=== PATIENT | female | born 1970 | race Caucasian/White ===

== ENCOUNTER 2016-07-16 03:13 | Emergency (ER) | payer OTHER ==
[~2016-07-16] VITALS: Ht 170.2 cm; Wt 104.3 kg
[2016-07-16] MEDS ORDERED: LISI-538 PO (03:30)
[2016-07-16] MEDS ORDERED: PENI250T57 PO (05:05)
[2016-07-16] MEDS ORDERED: ACETAMINOPHEN 325 MG TAB PO ONE (06:15)
[2016-07-16] MEDS ORDERED: GUAISYP9 PO (06:58)
[2016-07-16] MEDS ORDERED: PROA1AER INH (06:58)
[2016-07-16] MEDS ORDERED: PRED20TA PO (06:58)
--- NOTE | 2016-07-16 07:41 | REP ---
Clinical: Wheezing . Comparison: 05/31/2015 . Technique: PA and lateral. Findings: The mediastinum and cardiac silhouette are normal. The lung estrada are clear and without acute consolidation, effusion, or pneumothorax. The skeletal structures are intact and normal. Impression: 1. No acute cardiopulmonary process. Signed by Natalio Hernandez MD 07/16/2016 07:33 A
[2016-07-16 08:23] VITALS: BP 154/78
== END 2016-07-16 08:24 | disposition home or self-care (01) ==
LOC: M ED 05:46
DX: J20.9 Acute bronchitis, unspecified (principal); J06.9 Acute upper respiratory infection, unspecified; I10 Essential (primary) hypertension; F17.210 Nicotine dependence, cigarettes, uncomplicated; Z79.899 Other long term (current) drug therapy

== ENCOUNTER 2016-07-19 09:00 | Emergency (ER) | payer OTHER ==
[~2016-07-19] VITALS: Ht 170.2 cm; Wt 104.3 kg
[~2016-07-19 09:00] MED LIST: GUAISYP9 PO; LISI-538 PO; PENI250T57 PO; PRED20TA PO; PROA1AER INH
[2016-07-19] MEDS ORDERED: diphenhydrAMINE 25 MG CAP PO ONE (10:45)
[2016-07-19] MEDS ORDERED: FAMOTIDINE 20 MG TAB PO ONE (10:45)
[2016-07-19] MEDS ORDERED: predniSONE 20 MG TAB PO ONE (10:45)
[2016-07-19] MEDS: ALBUTEROL SULFATE 2.5 MG/0.5 ML INH NEB SOLN NEB SCH ×3 (11:00→11:42)
[2016-07-19] MEDS ORDERED: ZITHTAB PO (12:15)
[2016-07-19] MEDS ORDERED: PEPC1TAB4 PO (12:15)
[2016-07-19 12:26] VITALS: BP 151/80
--- NOTE | 2016-07-20 07:31 | REP ---
CHEST, TWO VIEWS: HISTORY: Cough. COMPARISON: 07/16/2016 FINDINGS: The superior mediastinal structures are midline. The cardiac silhouette is unremarkable in size, shape and position. The diaphragmatic surfaces of the lungs are regular and the costophrenic angles are clear. The pulmonary estrada are clear. The imaged osseous structures are intact. IMPRESSION: There is no acute cardiopulmonary disease. No change from the prior exam. Signed by Milad Lester DO 07/20/2016 09:54 A
== END 2016-07-19 12:29 | disposition home or self-care (01) ==
LOC: M ED 10:45
DX: J40 Bronchitis, not specified as acute or chronic (principal); L50.0 Allergic urticaria; T36.0X5A Adverse effect of penicillins, initial encounter; X58.XXXA Exposure to other specified factors, initial encounter; Y92.89 Other specified places as the place of occurrence of the external cause; R06.02 Shortness of breath; I10 Essential (primary) hypertension; F17.210 Nicotine dependence, cigarettes, uncomplicated; Z79.2 Long term (current) use of antibiotics; Z79.52 Long term (current) use of systemic steroids

== ENCOUNTER 2016-08-25 14:13 | Inpatient (IN) | payer OTHER ==
[~2016-08-25] VITALS: Ht 170.2 cm; Wt 102.9 kg
[~2016-08-25 14:13] MED LIST changes: +PEPC1TAB4 PO; +ZITHTAB PO
[2016-08-25] MEDS ORDERED: KETOROLAC 30 MG/ML VIAL (J1885) IV ONE (15:15)
[2016-08-25] MEDS ORDERED: NS 1,000 ML IV ONE (15:15)
[2016-08-25] MEDS ORDERED: ONDANSETRON 4MG/2ML VIAL (J2405) IV ONE (15:15)
[2016-08-25 15:42] LABS: BASO % 0.4 % (0.0-1.0); EOS # 0.1 K/mm3 (0.0-0.50); LARGE UNSTAINED CELL # 0.1 K/mm3 (0.0-0.4); LYMPH # 1.6 K/mm3 (1.5-4.5); LYMPH % 10.5 % (24.0-44.0); MEAN CORPUSCULAR HEMOGLOBIN 32.6 pg (27.0-33.0); MEAN CORPUSCULAR HGB CONC 35.2 g/dl (32.0-36.5); MEAN CORPUSCULAR VOLUME 92.8 fl (80.0-96.0); MONO # 0.5 K/mm3 (0.0-0.8); MONO % 3.7 % (0.0-5.0); NEUTROPHILS # 11.6 K/mm3 (1.8-7.7); NEUTROPHILS % 83.5 % (36.0-66.0); PLATELET COUNT, AUTOMATED 175 k/mm3 (150-450); RED CELL DISTRIBUTION WIDTH 12.5 % (11.5-14.5); WHITE BLOOD COUNT 13.8 K/mm3 (4.0-10.0)
[2016-08-25 15:53] LABS: CONTROL LINE UCG INT CTR LINE PRESENT
[2016-08-25 16:12] LABS: ALBUMIN 3.6 GM/DL (3.2-5.2); ALKALINE PHOSPHATASE 113 U/L (45-117); ALT/SGPT 24 U/L (12-78); AMYLASE 99 U/L (25-115); ANION GAP 7 MEQ/L (8-16); AST/SGOT 12 U/L (15-37); BILIRUBIN,DIRECT 0.1 MG/DL (0.0-0.2); BILIRUBIN,TOTAL 0.7 MG/DL (0.2-1.0); BLOOD UREA NITROGEN 8 MG/DL (7-18); CARBON DIOXIDE LEVEL 27 MEQ/L (21-32); CHLORIDE LEVEL 107 MEQ/L (98-107); CREATININE FOR GFR 0.71 MG/DL (0.55-1.02); GLOMERULAR FILTRATION RATE > 60.0 (>58); GLUCOSE, FASTING 100 MG/DL (70-105); POTASSIUM SERUM 3.8 MEQ/L (3.5-5.1); SODIUM LEVEL 141 MEQ/L (136-145); TOTAL PROTEIN 7.6 GM/DL (6.4-8.2)
--- NOTE | 2016-08-25 16:17 | REP ---
RIGHT UPPER QUADRANT ULTRASOUND: Real-time sonographic evaluation of the right upper quadrant is performed. Gallbladder demonstrates multiple gallstones without gallbladder wall thickening or pericholecystic fluid. There is no intrahepatic or extrahepatic biliary dilatation, common bile duct measuring 3 mm in diameter. Liver demonstrates somewhat increased echotexture diffusely suggesting some degree of fibrofatty infiltration. No gross liver or pancreatic mass is seen. The pancreas is not optimally seen due to overlying bowel gas. Right kidney demonstrates no hydronephrosis or nephrolithiasis with a normal size at 11.3 cm in length. IMPRESSION: Gallstones in the gallbladder without gallbladder wall thickening, pericholecystic fluid or biliary dilatation. Signed by Manuel Kern MD 08/25/2016 05:14 P
[2016-08-25] MEDS ORDERED: MORPHINE 4 MG/ML 1ML SYRINGE IV ONE (16:45)
[2016-08-25] MEDS ORDERED: LISI-542 PO (17:19)
[2016-08-25] MEDS ORDERED: MORPHINE 2 MG/ML 1ML SYRINGE IV PRN (18:45)
--- NOTE | 2016-08-25 19:08 | HPEPDOC ---
General Date of Admission Aug 25, 2016 at 17:31 Chief Complaint The patient is a 45-year-old female admitted with a reason for visit of Abd/ Back Pain. History of Present Illness PRIMARY CARE PROVIDER: Caitlyn CHOUDHARY CHIEF COMPLAINT: "I have gallstones" HISTORY OF PRESENT ILLNESS: Amanda Manning is a 45 year old female with a PMH of gallstones and hypertension who presents to the ED with the chief complaint of "I have gallstones". Reports a gradual onset of epigastric abdominal pain described as aching in quality and up to 9-10/10 in severity at its worst. She has never had pain like this before. It has been constant until she received treatment in the ED with Toradol and Morphine bringing her pain down to a 3/10. Patient states it is worse with palpation & food and radiates straight through to her back. She reports associated nausea and dry heaves but denies any vomiting, diarrhea, constipation, fever, chills, chest pain/pressure, or urinary symptoms. Of note, she ate a hamburger and portuguese fries two days ago. Denies personal Hx of CAD, liver disease, or kidney disease. ALLERGIES: No known drug allergies. Allergic to milk and cheese. 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 Sometimes sexually active, uses condoms every time Last year ate fatty foods frequently, has tried to cut back over the past year and eat more fruits and vegetables this year. Usually has 2 meals per day. Takes "long walks" to work She cannot remember last time she had a mammogram Immunizations and flu shot up to date FAMILY HISTORY: Mother living at age 57 with Diabetes Father from complications related to alcohol Has 2 brothers and 1 sister who are in good health Has 1 child. CODE STATUS: FULL CODE REVIEW OF SYSTEMS: Constitutional: denies fevers or chills HEENT: Head: denies headaches, dizziness, light-headedness. Denies sore throat or cough Cardiovascular: denies chest discomfort/pain, palpitations Respiratory: denies shortness of breath, difficulty breathing Gastrointestinal: Positive for decreased appetite, abdominal pain, nausea and "dry heaves". Negative for hematemesis, diarrhea, constipation, melena, hematochezia : denies dysuria, hematuria, urinary changes Musculoskeletal: Positive back pain. Denies muscle / joint stiffness, pain, swelling. No neck pain. Neurological: denies numbness, tingling, weakness Lymphatics: denies palpable lymph nodes or swollen glands Integumentary: denies any cuts, rashes, bruises PHYSICAL EXAMINATION: Vitals: T:96.8 BP:127/70 RR:16 P:57 O2 Saturation:96% room air General: Morbidly obese female. Lying on side, sleeping on gurney with lights dimmed. HEENT: Head: normocephalic, atraumatic. Eyes: EOMI, sclera are nonicteric. Nose: No external lesions Throat: coated tongue. Poor dentition. Neck: No lymphadenopathy Respiratory: Chest wall stable without tenderness. Diffuse end expiratory wheezes throughout. No respiratory distress. Cardiovascular: bradycardia without murmurs, rubs or gallops. Abdomen: Obese. Tenderness to palpation midline epigastric region. No tenderness to any of the four quadrants. Negative Talavera's sign. No McBurney's point tenderness. Soft. Nondistended, no hepatosplenomegaly appreciated. No venous engorgement. No guarding or rebound. Bowel sounds present. Extremities: Tattoo right volar forearm. No swelling in either lower extremity bilaterally Neurological: Alert. Moves all four extremities. Sensation intact and symmetrical in upper and lower extremities bilaterally Integumentary: skin free from rashes, lesions, abrasions Vascular: 2+ pulses symmetrical in upper and lower extremities bilaterally LABORATORY DATA: WBC: 13.8 neutrophils: 83.5 lymph: 10.5 Calcium 9.0 lipase 1021 UA: ketones 1+, blood 1+, WBC 8, bacteria 1+, squamous cells 4 MICROBIOLOGY: Urine culture pending ELECTROCARDIOGRAM: none RADIOLOGY: RUQ U/S: gallstones without GBW thickening, pericholecystic fluid or biliary dilation ASSESSMENT/PLAN: Acute gallstone pancreatitis: Supportive care with IV fluids @150 cc's/hr. NPO for bowel rest. Pain control with Morphine 2mg IV q4h PRN for pain control. Add Zofran as needed for nausea. Will obtain daily CBCs, CMPs, Mg levels. No need for EtOH withdrawal tx as patient is not a heavy drinker. Hypertension: Continue home dose of Lisinopril. Rule out UTI: UA was equivocal. Will still obtain urine cx. DVT prophylaxis: Lovenox 40mg SC daily Immunizations as per protocol FULL CODE STATUS My preceptor for this patient encounter was Dr. Dawna Avery, and was physically present in the building during the encounter and was fully available. As needed, all aspects of the patient interview, examination, medical decision making process, and medical care plan development were reviewed and approved by the preceptor. Preceptor is aware and concurs with the plan as stated in the body of this note and will attest to such by his/her cosignature. Home Medications No Active Prescriptions or Reported Meds Allergies Coded Allergies: No Known Allergies (Verified , 11/24/07) Vital Signs Vital Signs Date Time Temp Pulse Resp B/P (MAP) Pulse Ox O2 Delivery O2 Flow Rate FiO2 08/25/16 17:03 16 96 Room Air 08/25/16 16:53 96.8 57 127/70 (89) Laboratory Data Labs 24H Laboratory Tests 2 08/25/16 15:11: Urine Test NEGATIVE 08/25/16 15:16: White Blood Count 13.8H, Red Blood Count 4.67, Hemoglobin 15.2, Hematocrit 43.3 , Mean Corpuscular Volume 92.8, Mean Corpuscular Hemoglobin 32.6, Mean Corpuscular Hemoglobin Concent 35.2, Red Cell Distribution Width 12.5, Platelet Count 175, Neutrophils (%) (Auto) 83.5H, Lymphocytes (%) (Auto) 10.5L, Monocytes (%) (Auto) 3.7, Eosinophils (%) (Auto) 1.0, Basophils (%) (Auto) 0.4, Neutrophils # (Auto) 11.6H, Lymphocytes # (Auto) 1.6, Monocytes # (Auto) 0.5, Eosinophils # (Auto) 0.1, Basophils # (Auto) 0.0, Large Unclassified Cells % 1.0 , Large Unclassified Cells # 0.1, Urine Appearance HAZY, Urine Color YELLOW, Urine pH 6.0, Urine Specific [place] 1.015, Urine Protein NEGATIVE, Urine Glucose (UA) NEGATIVE, Urine Ketones 1+H, Urine Urobilinogen 0.2, Urine Bilirubin NEGATIVE, Urine Leukocyte Esterase NEGATIVE, Urine Blood 1+H, Urine Nitrite NEGATIVE, Urine WBC (Auto) 8H, Urine RBC (Auto) 5H, Urine Hyaline Casts (Auto) 0, Urine Bacteria (Auto) 1+H, Urine Squamous Epithelial Cells 4, Urine Mucus (Auto) SMALL, Urine Sperm (Auto) , Anion Gap 7L, Glomerular Filtration Rate > 60.0, Calcium Level 9.0, Aspartate Amino Transf (AST/SGOT) 12L, Alanine Aminotransferase (ALT/SGPT) 24, Alkaline Phosphatase 113, Total Bilirubin 0.7, Direct Bilirubin 0.1, Total Protein 7.6, Albumin 3.6, Albumin/Globulin Ratio 0.90L, Amylase Level 99, Lipase 1021H CBC/BMP Laboratory Tests 08/25/16 15:16 Red Blood Count 4.67, Mean Corpuscular Volume 92.8, Mean Corpuscular Hemoglobin 32.6, Mean Corpuscular Hemoglobin Concent 35.2, Red Cell Distribution Width 12.5 , Neutrophils (%) (Auto) 83.5 H, Lymphocytes (%) (Auto) 10.5 L, Monocytes (%) ( Auto) 3.7, Eosinophils (%) (Auto) 1.0, Basophils (%) (Auto) 0.4, Neutrophils # ( Auto) 11.6 H, Lymphocytes # (Auto) 1.6, Monocytes # (Auto) 0.5, Eosinophils # ( Auto) 0.1, Basophils # (Auto) 0.0 Plan / VTE VTE Prophylaxis Ordered?: Yes (lovenox) Attending Note Attending Note I have seen and examined the above patient and agree with the plan as documented above. QUYEN PRABHAKAR OGME-1 Aug 25, 2016 19:08 DAWNA AVERY Sep 04, 2016 10:29
[2016-08-25 19:15] VITALS: BP 169/81
[2016-08-25] MEDS: NS 1,000 ML IV SCH (19:26)
[2016-08-25 20:17] VITALS: BP 165/82
[2016-08-25] MEDS ORDERED: LISINOPRIL 5 MG TAB PO ONE (21:00)
[2016-08-25] MEDS: ONDANSETRON 4MG/2ML VIAL (J2405) IV PRN (21:59)
[2016-08-25] MEDS: PERCOCET 5MG/325MG TAB PO PRN (22:36)
[2016-08-25 23:42] VITALS: BP 145/79
[2016-08-26] MEDS: NS 1,000 ML IV SCH ×4 (01:39→21:13)
[2016-08-26 04:00] VITALS: BP 141/90
[2016-08-26] MEDS: ONDANSETRON 4MG/2ML VIAL (J2405) IV PRN (05:33)
[2016-08-26] MEDS: PERCOCET 5MG/325MG TAB PO PRN ×2 (05:35→20:15)
[2016-08-26 08:00] VITALS: BP 158/80
[2016-08-26] MEDS: ENOXAPARIN 40 MG/0.4 ML SYRINGE (J1650) SC SCH (08:11)
[2016-08-26] MEDS: LISINOPRIL 5 MG TAB PO SCH (08:11)
[2016-08-26 08:14] LABS: BASO % 0.3 % (0.0-1.0); EOS % 0.6 % (0.0-3.0); LARGE UNSTAINED CELL # 0.1 K/mm3 (0.0-0.4); LARGE UNSTAINED CELL % 1.3 % (0.0-4.0); LYMPH # 1.5 K/mm3 (1.5-4.5); LYMPH % 15.2 % (24.0-44.0); MEAN CORPUSCULAR HEMOGLOBIN 32.2 pg (27.0-33.0); MEAN CORPUSCULAR HGB CONC 34.3 g/dl (32.0-36.5); MEAN CORPUSCULAR VOLUME 93.8 fl (80.0-96.0); MONO # 0.5 K/mm3 (0.0-0.8); MONO % 5.2 % (0.0-5.0); NEUTROPHILS % 77.5 % (36.0-66.0); PLATELET COUNT, AUTOMATED 147 k/mm3 (150-450); RED CELL DISTRIBUTION WIDTH 12.7 % (11.5-14.5)
[2016-08-26] MEDS ORDERED: GASTROGRAFIN SOLUTION 30ML PO ONE (08:30)
[2016-08-26] MEDS ORDERED: ISOVUE-370 76% 100ML VIAL (Q9967) As Ordered ONE (08:34)
[2016-08-26 08:39] LABS: ALBUMIN 3.1 GM/DL (3.2-5.2); ALBUMIN/GLOBULIN RATIO 1.07 (1.00-1.93); ALKALINE PHOSPHATASE 94 U/L (45-117); ALT/SGPT 21 U/L (12-78); ANION GAP 5 MEQ/L (8-16); AST/SGOT 9 U/L (15-37); BILIRUBIN,TOTAL 0.6 MG/DL (0.2-1.0); BLOOD UREA NITROGEN 8 MG/DL (7-18); CALCIUM LEVEL 8.2 MG/DL (8.5-10.1); CARBON DIOXIDE LEVEL 28 MEQ/L (21-32); CHLORIDE LEVEL 107 MEQ/L (98-107); CREATININE FOR GFR 0.55 MG/DL (0.55-1.02); GLOMERULAR FILTRATION RATE > 60.0 (>58); GLUCOSE, FASTING 101 MG/DL (70-105); MAGNESIUM LEVEL 1.9 MG/DL (1.8-2.4); POTASSIUM SERUM 3.9 MEQ/L (3.5-5.1); SODIUM LEVEL 140 MEQ/L (136-145)
--- NOTE | 2016-08-26 08:59 | IPNPDOC ---
Subjective Date Seen The patient was seen on 08/26/16. Subjective Chief Complaint/HPI The patient is a 45-year-old female admitted with a reason for visit of Abd/ Back Pain. Events since last encounter Continues with abdominal pain and bloating. Abd US with gallstones and fatty infiltration of liver Constitutional: Denies: Chills, Fever, Night Sweats Pulmonary: Denies: Dyspnea, Cough Cardiovascular: Denies: Chest Pain, Palpitations, Orthopnea, Paroxysmal Noc. Dyspnea, Lt Headedness Gastrointestinal: Reports: Abdominal Pain, Denies: Nausea, Vomiting, Diarrhea, Constipation Genitourinary: Denies: Dysuria, Frequency, Incontinence, Retention Psych: Reports: Mood Normal, Denies: Depression, Memory Issues Objective Physical Examination General Exam: Positive: Alert, No Acute Distress Eye Exam: Positive: PERRLA, Conjunctiva & lids normal, EOMI, Negative: Sclera icteric ENT Exam: Positive: Atraumatic, Mucous membr. moist/pink, Pharynx Normal Chest Exam: Positive: Clear to auscultation, Normal air movement Heart Exam: Positive: Rate Normal, Regular Rhythm, Normal S1, Normal S2, Negative: Murmurs, Rubs Abdomen Exam: Positive: Normal bowel sounds, Soft, Tenderness (RUQ), Negative: Hepatospenomegaly Assessment /Plan Problems (1) Acute pancreatitis Status: Acute Problem Text: POSSIBLY pancreatitis-only lipase elevated 08/26-afebrile, WBC down 13.8 to 9, a/l down to 84/780, advance to clears, + PPI 08/26 CT AP pending IVF. (2) Cholelithiasis Status: Acute Problem Specific Plan: Monitor Clinically (3) HTN (hypertension) Status: Chronic Response to Treatment: Stable Problem Specific Plan: Monitor Clinically Plan/VTE VTE Prophylaxis Ordered?: Yes (lovenox) Plan Diet: Make NPO VS, I&O, 24H, Fishbone Vital Signs/I&O Vital Signs Date Time Temp Pulse Resp B/P (MAP) Pulse Ox O2 Delivery O2 Flow Rate FiO2 08/26/16 08:11 141/90 08/26/16 08:00 98.8 46 18 98 Room Air I&O- Last 24 Hours up to 6 AM 08/26/16 06:00 Intake Total 2650 ml Output Total 500 ml Balance 2150 ml Laboratory Data 24H LABS Laboratory Tests 2 08/25/16 15:11: Urine Test NEGATIVE 08/25/16 15:16: White Blood Count 13.8H, Red Blood Count 4.67, Hemoglobin 15.2, Hematocrit 43.3 , Mean Corpuscular Volume 92.8, Mean Corpuscular Hemoglobin 32.6, Mean Corpuscular Hemoglobin Concent 35.2, Red Cell Distribution Width 12.5, Platelet Count 175, Neutrophils (%) (Auto) 83.5H, Lymphocytes (%) (Auto) 10.5L, Monocytes (%) (Auto) 3.7, Eosinophils (%) (Auto) 1.0, Basophils (%) (Auto) 0.4, Neutrophils # (Auto) 11.6H, Lymphocytes # (Auto) 1.6, Monocytes # (Auto) 0.5, Eosinophils # (Auto) 0.1, Basophils # (Auto) 0.0, Large Unclassified Cells % 1.0 , Large Unclassified Cells # 0.1, Urine Appearance HAZY, Urine Color YELLOW, Urine pH 6.0, Urine Specific [place] 1.015, Urine Protein NEGATIVE, Urine Glucose (UA) NEGATIVE, Urine Ketones 1+H, Urine Urobilinogen 0.2, Urine Bilirubin NEGATIVE, Urine Leukocyte Esterase NEGATIVE, Urine Blood 1+H, Urine Nitrite NEGATIVE, Urine WBC (Auto) 8H, Urine RBC (Auto) 5H, Urine Hyaline Casts (Auto) 0, Urine Bacteria (Auto) 1+H, Urine Squamous Epithelial Cells 4, Urine Mucus (Auto) SMALL, Urine Sperm (Auto) , Anion Gap 7L, Glomerular Filtration Rate > 60.0, Calcium Level 9.0, Aspartate Amino Transf (AST/SGOT) 12L, Alanine Aminotransferase (ALT/SGPT) 24, Alkaline Phosphatase 113, Total Bilirubin 0.7, Direct Bilirubin 0.1, Total Protein 7.6, Albumin 3.6, Albumin/Globulin Ratio 0.90L, Amylase Level 99, Lipase 1021H 08/26/16 07:36: White Blood Count 9.0, Red Blood Count 4.32, Hemoglobin 13.9, Hematocrit 40.5, Mean Corpuscular Volume 93.8, Mean Corpuscular Hemoglobin 32.2, Mean Corpuscular Hemoglobin Concent 34.3, Red Cell Distribution Width 12.7, Platelet Count 147L, Neutrophils (%) (Auto) 77.5H, Lymphocytes (%) (Auto) 15.2L, Monocytes (%) (Auto) 5.2H, Eosinophils (%) (Auto) 0.6, Basophils (%) (Auto) 0.3 , Neutrophils # (Auto) 7.0, Lymphocytes # (Auto) 1.5, Monocytes # (Auto) 0.5, Eosinophils # (Auto) 0.0, Basophils # (Auto) 0.0, Large Unclassified Cells % 1.3 , Large Unclassified Cells # 0.1, Anion Gap 5L, Glomerular Filtration Rate > 60.0, Calcium Level 8.2L, Aspartate Amino Transf (AST/SGOT) 9L, Alanine Aminotransferase (ALT/SGPT) 21, Alkaline Phosphatase 94, Total Bilirubin 0.6, Total Protein 6.0#L, Albumin 3.1L, Albumin/Globulin Ratio 1.07, Blood Urea Nitrogen 8, Creatinine 0.55, Sodium Level 140, Potassium Level 3.9, Chloride Level 107, Carbon Dioxide Level 28, Magnesium Level 1.9 CBC/BMP Laboratory Tests 08/25/16 15:16 Red Blood Count 4.67, Mean Corpuscular Volume 92.8, Mean Corpuscular Hemoglobin 32.6, Mean Corpuscular Hemoglobin Concent 35.2, Red Cell Distribution Width 12.5 , Neutrophils (%) (Auto) 83.5 H, Lymphocytes (%) (Auto) 10.5 L, Monocytes (%) ( Auto) 3.7, Eosinophils (%) (Auto) 1.0, Basophils (%) (Auto) 0.4, Neutrophils # ( Auto) 11.6 H, Lymphocytes # (Auto) 1.6, Monocytes # (Auto) 0.5, Eosinophils # ( Auto) 0.1, Basophils # (Auto) 0.0 08/26/16 07:36 Red Blood Count 4.32, Mean Corpuscular Volume 93.8, Mean Corpuscular Hemoglobin 32.2, Mean Corpuscular Hemoglobin Concent 34.3, Red Cell Distribution Width 12.7 , Neutrophils (%) (Auto) 77.5 H, Lymphocytes (%) (Auto) 15.2 L, Monocytes (%) ( Auto) 5.2 H, Eosinophils (%) (Auto) 0.6, Basophils (%) (Auto) 0.3, Neutrophils # (Auto) 7.0, Lymphocytes # (Auto) 1.5, Monocytes # (Auto) 0.5, Eosinophils # ( Auto) 0.0, Basophils # (Auto) 0.0, Calcium Level 8.2 L, Aspartate Amino Transf ( AST/SGOT) 9 L, Alanine Aminotransferase (ALT/SGPT) 21, Alkaline Phosphatase 94, Total Bilirubin 0.6, Total Protein 6.0 #L, Albumin 3.1 L Microbiology Microbiology 08/25/16 Urine Culture, Received Pending Valerie Levin Aug 26, 2016 08:59 Marshal Capps M.D. Aug 26, 2016 15:15
[2016-08-26] MEDS ORDERED: LISINOPRIL 5 MG TAB PO SCH (09:00)
[2016-08-26] MEDS ORDERED: GASTROGRAFIN SOLUTION 30ML (Q9963) PO ONE (09:00)
[2016-08-26 09:18] LABS: AMYLASE 84 U/L (25-115)
[2016-08-26 12:00] VITALS: BP 144/74
[2016-08-26] MEDS: PANTOPRAZOLE 40MG TAB (PROTONIX) PO SCH (13:46)
[2016-08-26 16:00] VITALS: BP 142/80
--- NOTE | 2016-08-26 19:42 | REP ---
CT ABDOMEN AND PELVIS WITH IV CONTRAST: 08/26/2016. Comparison: Abdominal ultrasound 08/25/2016, CT without contrast 02/11/2014. Technique: Oral Gastrografin mixture utilized, 10 mL in 290 mL of flavored water for two doses per our bowel contrast protocol followed by bolus of 1 mL of Isovue 370 and scanning through abdomen and pelvis. Coronal and sagittal reconstructions were provided. Clinical history: Abdominal pain, evaluate for pancreatitis. CT abdomen: Lung bases show minor dependent atelectasis, but are otherwise clear. The heart is not enlarged. No pericardial thickening or effusion and no hiatal hernia. Liver is mildly enlarged with a 19 cm vertical diameter in the midclavicular line. There is slight fullness of the left lobe without focal hepatic mass or biliary dilatation. Gallbladder shows some dependent gallstones without pericholecystic fluid. I do not see calcified stone in the bruce hepatis course of the common duct or in the pancreatic head. More inferior to the pancreatic head, there is inflammatory change in the peripancreatic fat consistent with focal pancreatitis. Fluid seen tracking along the Gerota's fascia anterior to the right kidney and across the midline towards the left. Body and tail of the pancreas without significant inflammatory change. There is a nodule in the left adrenal gland with low attenuation on previous study and unchanged consistent with adenoma, benign and stable. Similar small adenoma on the right. Kidneys show function without obstruction, stone, mass or cyst. No hydroureter or ureteral stone. The aorta is without aneurysm and no periaortic other retroperitoneal pathologic sized lymphadenopathy. Lung window review of all CT slice levels in the abdomen and pelvis without perforation or abscess, no free air. No generalized ascites. I see no retroperitoneal or mesenteric pathologic sized adenopathy. Small bowel loops contrast or fluid-filled, but unremarkable. Colon without sign of colitis, diverticulitis, stricture or mass. There are a few scattered diverticula. Bone windows show lumbar and lower thoracic spine with minimal degenerative change and some posterior element minor facet arthropathy changes at the lower lumbar region. Visualized ribs are intact. CT pelvis: Bony hips are intact. There is a bone island in the acetabular roof on the right, unchanged. Iliac wings, sacrum and SI joints unremarkable. Lumbosacral junction intact. Symphysis pubis and pubic rami were unremarkable. Gallbladder partially filled with evidence for pelvic floor muscular relaxation. The uterus is absent. Vaginal cuff intact. No adnexal or pelvic mass. No colitis, diverticulitis, ascites or adenopathy in the deep pelvis. No inguinal hernia on either side. Inguinal nodes, left larger than right, but without gross mass. Impression: 1. No evidence of mass, but there is evidence for pancreatitis near the inferior aspect head of the pancreas with inflammatory changes in the fat and small amount of fluid along Gerota's fascia. No pseudocyst or abscess. 2. Some cholelithiasis without visible choledocholithiasis, pancreatic pseudocyst, solid mass or adjacent adenopathy/fluid. 3. Hepatomegaly with 19 cm vertical diameter of the liver without focal hepatic or splenic mass. Kidneys unremarkable. Stomach, small bowel loops and colon without acute finding. 4. Status post hysterectomy with no pelvic mass, free fluid, adenopathy or other acute finding. Signed by Gianni Salinas MD 08/27/2016 11:44 A
[2016-08-26 20:43] VITALS: BP 170/90
[2016-08-27] VITALS (9 sets, daily range): BP systolic 123–182; BP diastolic 76–110
[2016-08-27] MEDS: PERCOCET 5MG/325MG TAB PO PRN ×3 (03:09→20:40)
[2016-08-27] MEDS: NS 1,000 ML IV SCH (04:25)
[2016-08-27 07:01] LABS: BASO % 0.2 % (0.0-1.0); EOS # 0.1 K/mm3 (0.0-0.50); EOS % 1.4 % (0.0-3.0); LARGE UNSTAINED CELL # 0.1 K/mm3 (0.0-0.4); LARGE UNSTAINED CELL % 1.5 % (0.0-4.0); LYMPH # 2.1 K/mm3 (1.5-4.5); LYMPH % 20.6 % (24.0-44.0); MEAN CORPUSCULAR HEMOGLOBIN 31.9 pg (27.0-33.0); MEAN CORPUSCULAR HGB CONC 33.9 g/dl (32.0-36.5); MEAN CORPUSCULAR VOLUME 94.3 fl (80.0-96.0); MONO # 0.5 K/mm3 (0.0-0.8); MONO % 5.3 % (0.0-5.0); NEUTROPHILS # 6.9 K/mm3 (1.8-7.7); PLATELET COUNT, AUTOMATED 149 k/mm3 (150-450); RED CELL DISTRIBUTION WIDTH 12.6 % (11.5-14.5); WHITE BLOOD COUNT 9.7 K/mm3 (4.0-10.0)
[2016-08-27 07:19] LABS: ALBUMIN 2.8 GM/DL (3.2-5.2); ALBUMIN/GLOBULIN RATIO 0.82 (1.00-1.93); ALKALINE PHOSPHATASE 84 U/L (45-117); ALT/SGPT 16 U/L (12-78); ANION GAP 5 MEQ/L (8-16); AST/SGOT 11 U/L (15-37); BILIRUBIN,TOTAL 0.6 MG/DL (0.2-1.0); BLOOD UREA NITROGEN 4 MG/DL (7-18); CALCIUM LEVEL 8.7 MG/DL (8.5-10.1); CARBON DIOXIDE LEVEL 28 MEQ/L (21-32); CHLORIDE LEVEL 106 MEQ/L (98-107); GLOMERULAR FILTRATION RATE > 60.0 (>58); GLUCOSE, FASTING 98 MG/DL (70-105); POTASSIUM SERUM 4.3 MEQ/L (3.5-5.1); SODIUM LEVEL 139 MEQ/L (136-145); TOTAL PROTEIN 6.2 GM/DL (6.4-8.2)
[2016-08-27] MEDS: LISINOPRIL 5 MG TAB PO SCH (08:17)
[2016-08-27] MEDS: PANTOPRAZOLE 40MG TAB (PROTONIX) PO SCH (08:17)
[2016-08-27] MEDS: ENOXAPARIN 40 MG/0.4 ML SYRINGE (J1650) SC SCH (08:18)
--- NOTE | 2016-08-27 09:45 | IPNPDOC ---
Subjective Date Seen The patient was seen on 08/27/16. Subjective Chief Complaint/HPI The patient is a 45-year-old female admitted with a reason for visit of Abd/ Back Pain. Events since last encounter Abdominal pain improving. Pancreatitis confirmed on CT scan. lipase down to 700 yesterday. Tolerating clear liquids well. Constitutional: Denies: Chills, Fever, Night Sweats ENT: Denies: Head Aches, Ear Pain, Dysphagia Pulmonary: Denies: Dyspnea, Cough Cardiovascular: Denies: Chest Pain, Palpitations, Orthopnea, Paroxysmal Noc. Dyspnea, Lt Headedness Gastrointestinal: Denies: Nausea, Vomiting, Abdominal Pain, Diarrhea, Constipation Objective Physical Examination General Exam: Positive: Alert, No Acute Distress Eye Exam: Positive: PERRLA, Conjunctiva & lids normal, EOMI, Negative: Sclera icteric ENT Exam: Positive: Atraumatic, Mucous membr. moist/pink, Pharynx Normal Chest Exam: Positive: Clear to auscultation, Normal air movement Heart Exam: Positive: Rate Normal, Regular Rhythm, Normal S1, Normal S2, Negative: Murmurs, Rubs Abdomen Exam: Positive: Normal bowel sounds, Soft, Tenderness (RUQ), Negative: Hepatospenomegaly Assessment /Plan Problems (1) Acute pancreatitis Status: Acute Problem Text: 08/27/2016: confirmed on CT scan. Repeat enzymes today. Tolerating clears. Slowly advance diet. 08/26-afebrile, WBC down 13.8 to 9, a/l down to 84/780, advance to clears, + PPI 08/26 CT AP pending IVF. (2) Cholelithiasis Status: Acute Problem Specific Plan: Monitor Clinically Problem Text: surgical consult outpatient. (3) HTN (hypertension) Status: Chronic Response to Treatment: Stable Problem Specific Plan: Monitor Clinically Problem Text: Elevated BP noted. Lisinopril increased to 10 mg po daily. Monitor. Plan/VTE VTE Prophylaxis Ordered?: Yes (lovenox) Plan Diet: Make NPO VS, I&O, 24H, Fishbone Vital Signs/I&O Vital Signs Date Time Temp Pulse Resp B/P (MAP) Pulse Ox O2 Delivery O2 Flow Rate FiO2 08/27/16 08:17 179/79 08/27/16 08:00 Room Air 08/27/16 08:00 99.9 63 18 98 I&O- Last 24 Hours up to 6 AM 08/27/16 06:00 Intake Total 2700 ml Output Total 2800 ml Balance -100 ml Laboratory Data 24H LABS Laboratory Tests 2 08/27/16 06:44: White Blood Count 9.7, Red Blood Count 4.07, Hemoglobin 13.0, Hematocrit 38.3, Mean Corpuscular Volume 94.3, Mean Corpuscular Hemoglobin 31.9, Mean Corpuscular Hemoglobin Concent 33.9, Red Cell Distribution Width 12.6, Platelet Count 149L, Neutrophils (%) (Auto) 71.0H, Lymphocytes (%) (Auto) 20.6L, Monocytes (%) (Auto) 5.3H, Eosinophils (%) (Auto) 1.4, Basophils (%) (Auto) 0.2 , Neutrophils # (Auto) 6.9, Lymphocytes # (Auto) 2.1, Monocytes # (Auto) 0.5, Eosinophils # (Auto) 0.1, Basophils # (Auto) 0.0, Large Unclassified Cells % 1.5 , Large Unclassified Cells # 0.1, Anion Gap 5L, Glomerular Filtration Rate > 60.0, Blood Urea Nitrogen 4L, Creatinine 0.50L, Sodium Level 139, Potassium Level 4.3, Chloride Level 106, Carbon Dioxide Level 28, Calcium Level 8.7, Aspartate Amino Transf (AST/SGOT) 11L, Alanine Aminotransferase (ALT/SGPT) 16, Alkaline Phosphatase 84, Total Bilirubin 0.6, Total Protein 6.2L, Albumin 2.8L, Magnesium Level 2.0, Albumin/Globulin Ratio 0.82L CBC/BMP Laboratory Tests 08/27/16 06:44 Red Blood Count 4.07, Mean Corpuscular Volume 94.3, Mean Corpuscular Hemoglobin 31.9, Mean Corpuscular Hemoglobin Concent 33.9, Red Cell Distribution Width 12.6 , Neutrophils (%) (Auto) 71.0 H, Lymphocytes (%) (Auto) 20.6 L, Monocytes (%) ( Auto) 5.3 H, Eosinophils (%) (Auto) 1.4, Basophils (%) (Auto) 0.2, Neutrophils # (Auto) 6.9, Lymphocytes # (Auto) 2.1, Monocytes # (Auto) 0.5, Eosinophils # ( Auto) 0.1, Basophils # (Auto) 0.0, Calcium Level 8.7, Aspartate Amino Transf ( AST/SGOT) 11 L, Alanine Aminotransferase (ALT/SGPT) 16, Alkaline Phosphatase 84 , Total Bilirubin 0.6, Total Protein 6.2 L, Albumin 2.8 L Microbiology Microbiology 08/25/16 Urine Culture, Received Pending Valerie Levin [facility] Aug 27, 2016 09:45
[2016-08-27] MEDS ORDERED: SLF 3 ML SYR IV PRN (10:00)
[2016-08-27 10:14] LABS: AMYLASE 44 U/L (25-115)
[2016-08-27] MEDS: SLF 3 ML SYR IV SCH ×2 (13:06→21:33)
[2016-08-27] MEDS ORDERED: LISINOPRIL 5 MG TAB PO ONE (16:30)
[2016-08-27] MEDS ORDERED: ACETAMINOPHEN TAB 650MG DOSE (2X325MG) PO ONE (22:00)
[2016-08-28] VITALS: BP 144/74
[2016-08-28 04:00] VITALS: BP 139/83
[2016-08-28] MEDS ORDERED: MIRALAX *UNIT DOSE* 17GM PACKET PO PRN (07:30)
--- NOTE | 2016-08-28 07:31 | IPNPDOC ---
Subjective Date Seen The patient was seen on 08/28/16. Subjective Chief Complaint/HPI The patient is a 45-year-old female admitted with a reason for visit of Abd/ Back Pain. Events since last encounter Tolerating full po diet. Urine culture returned with Kelbsiella in urine. Had fever overnight, T=101.3. Came down with Tylenol. C/o constipation. No BM x 7 days. + flatus. Constitutional: Reports: Fever, Denies: Chills, Night Sweats Skin: Denies: Rash, Lesions, Breakdown Pulmonary: Denies: Dyspnea, Cough Cardiovascular: Denies: Chest Pain, Palpitations, Orthopnea, Paroxysmal Noc. Dyspnea, Lt Headedness Gastrointestinal: Reports: Constipation, Denies: Nausea, Vomiting, Abdominal Pain Genitourinary: Denies: Dysuria, Frequency, Incontinence Neurological: Denies: Weakness, Numbness, Change in speech, Confusion Psych: Reports: Mood Normal, Denies: Depression, Memory Issues Objective Physical Examination General Exam: Positive: Alert, No Acute Distress Eye Exam: Positive: PERRLA, Conjunctiva & lids normal, EOMI, Negative: Sclera icteric ENT Exam: Positive: Atraumatic, Mucous membr. moist/pink, Pharynx Normal Chest Exam: Positive: Clear to auscultation, Normal air movement Heart Exam: Positive: Rate Normal, Regular Rhythm, Normal S1, Normal S2, Negative: Murmurs, Rubs Abdomen Exam: Positive: Normal bowel sounds, Soft, Tenderness (RUQ), Negative: Hepatospenomegaly Assessment /Plan Problems (1) Urinary tract infection Status: Acute Problem Text: cx + for Klebsiella. Sensitive to Bactrim. Started po course today. May be cause of fever. (2) Acute pancreatitis Status: Resolved Problem Text: 08/28/2016: tolerating full po diet. enzymes have returned to normal. 08/27/2016: confirmed on CT scan. Repeat enzymes today. Tolerating clears. Slowly advance diet. 08/26-afebrile, WBC down 13.8 to 9, a/l down to 84/780, advance to clears, + PPI 08/26 CT AP c/w pancreatitis IVF. (3) Cholelithiasis Status: Acute Problem Specific Plan: Monitor Clinically Problem Text: surgical consult outpatient. (4) HTN (hypertension) Status: Chronic Response to Treatment: Stable Problem Specific Plan: Monitor Clinically Problem Text: 08/28/16: improved BP with increased Lisinopril dosing. Elevated BP noted. Lisinopril increased to 10 mg po daily. Monitor. Plan/VTE VTE Prophylaxis Ordered?: Yes (lovenox) Plan Diet: Make NPO VS, I&O, 24H, Fishbone Vital Signs/I&O Vital Signs Date Time Temp Pulse Resp B/P (MAP) Pulse Ox O2 Delivery O2 Flow Rate FiO2 08/28/16 04:30 Room Air 08/28/16 04:00 98.3 56 18 139/83 (101) 96 I&O- Last 24 Hours up to 6 AM 08/28/16 06:00 Intake Total 1560 ml Output Total 2150 ml Balance -590 ml Laboratory Data Microbiology Microbiology 08/25/16 Urine Culture - Final, Complete Klebsiella Pneumoniae Valerie Levin Aug 28, 2016 07:31 Marshal Capps M.D. Aug 28, 2016 16:07
[2016-08-28 08:00] VITALS: BP 130/78
[2016-08-28] MEDS: ENOXAPARIN 40 MG/0.4 ML SYRINGE (J1650) SC SCH (08:15)
[2016-08-28 08:25] LABS: BASO % 0.3 % (0.0-1.0); EOS # 0.2 K/mm3 (0.0-0.50); EOS % 2.3 % (0.0-3.0); LARGE UNSTAINED CELL # 0.1 K/mm3 (0.0-0.4); LARGE UNSTAINED CELL % 1.4 % (0.0-4.0); LYMPH # 1.7 K/mm3 (1.5-4.5); LYMPH % 20.3 % (24.0-44.0); MEAN CORPUSCULAR HGB CONC 34.6 g/dl (32.0-36.5); MEAN CORPUSCULAR VOLUME 92.4 fl (80.0-96.0); MONO # 0.4 K/mm3 (0.0-0.8); MONO % 5.4 % (0.0-5.0); NEUTROPHILS # 5.4 K/mm3 (1.8-7.7); NEUTROPHILS % 70.3 % (36.0-66.0); PLATELET COUNT, AUTOMATED 147 k/mm3 (150-450); RED CELL DISTRIBUTION WIDTH 12.5 % (11.5-14.5); WHITE BLOOD COUNT 7.6 K/mm3 (4.0-10.0)
[2016-08-28 08:51] LABS: ALBUMIN 2.9 GM/DL (3.2-5.2); ALBUMIN/GLOBULIN RATIO 0.83 (1.00-1.93); ALKALINE PHOSPHATASE 84 U/L (45-117); ALT/SGPT 16 U/L (12-78); AMYLASE 23 U/L (25-115); ANION GAP 5 MEQ/L (8-16); AST/SGOT 7 U/L (15-37); BILIRUBIN,TOTAL 0.6 MG/DL (0.2-1.0); BLOOD UREA NITROGEN 4 MG/DL (7-18); CALCIUM LEVEL 8.6 MG/DL (8.5-10.1); CARBON DIOXIDE LEVEL 29 MEQ/L (21-32); CHLORIDE LEVEL 102 MEQ/L (98-107); CREATININE FOR GFR 0.58 MG/DL (0.55-1.02); GLOMERULAR FILTRATION RATE > 60.0 (>58); GLUCOSE, FASTING 137 MG/DL (70-105); MAGNESIUM LEVEL 2.1 MG/DL (1.8-2.4); POTASSIUM SERUM 3.7 MEQ/L (3.5-5.1); SODIUM LEVEL 136 MEQ/L (136-145); TOTAL PROTEIN 6.4 GM/DL (6.4-8.2)
[2016-08-28] MEDS ORDERED: BACTRIM 160MG/800MG DS TAB PO SCH (09:00)
[2016-08-28] MEDS ORDERED: BISACODYL 5 MG TAB PO SCH (09:00)
[2016-08-28] MEDS ORDERED: LISINOPRIL 10 MG TAB PO SCH (09:00)
[2016-08-28 09:28] VITALS: BP 130/78
[2016-08-28] MEDS: PANTOPRAZOLE 40MG TAB (PROTONIX) PO SCH (09:28)
[2016-08-28] MEDS: SLF 3 ML SYR IV SCH (10:19)
[2016-08-28 12:00] VITALS: BP 142/93
--- NOTE | 2016-08-29 06:06 | DSES ---
DATE OF ADMISSION: 08/25/2016 DATE OF DISCHARGE: 08/28/2016 DISCHARGE DIAGNOSES: 1. Acute pancreatitis, first episode, probably secondary to gallstone pancreatitis. 2. Obesity morbid. 3. Hypertension. 4. Klebsiella pneumoniae urinary tract infection (UTI). 5. Systemic inflammatory response syndrome (SIRS) secondary to pancreatitis. HOSPITAL COURSE: The patient was admitted to [facility] medical/surgical bed and placed in intravenous (IV) fluids with pain control, and her abdominal pain and anorexia quickly improved. Her admitting white count was 13.8; by discharge was down to 7.6. Her admitting amylase and lipase were 99 and 1021; by discharge they are 23 and 108. The patient was incidentally found to have urine culture with positive Klebsiella pneumoniae greater than 100,000. Therefore, she was started on Bactrim DS by mouth twice a day. Culture by sensitivity. The patient was found evidence of pancreatitis near the inferior aspect of the head of the pancreas and cholelithiasis without visible choledocholithiasis by CT on 08/26/2016. Her right upper quadrant ultrasound from 08/25/2016, showed cholelithiasis without gallbladder wall thickening nor ductal dilatation. While hospitalized, the patient's home regimen of lisinopril 5 daily was increased to 10 daily, and her blood pressure was well controlled by discharge. The patient was discharged to home on Bactrim DS by mouth twice a day times five days, and lisinopril 10 by mouth daily. She was advised to eat small low-fat meals and call doctor nursing department chairperson or return to the ER if there is any recurrence of her abdominal pain or anorexia. She will be out of work until 09/01/2016, when she will be reevaluated by Day Levin. At that point, surgical referral will be made for outpatient elective cholecystectomy.
== END 2016-08-28 17:00 | disposition home or self-care (01) | DRG 282 ==
LOC: M ED 14:58 → M ED INP 17:31 → M PED 18:49
PROVIDERS: ADMIT Hospitalist; ATTEND Family Medicine
DX: K85.10 Biliary acute pancreatitis without necrosis or infection (principal); N39.0 Urinary tract infection, site not specified; I10 Essential (primary) hypertension; R65.10 Systemic inflammatory response syndrome (SIRS) of non-infectious origin without acute organ dysfunction; E66.01 Morbid (severe) obesity due to excess calories; B96.1 Klebsiella pneumoniae [K. pneumoniae] as the cause of diseases classified elsewhere; F17.210 Nicotine dependence, cigarettes, uncomplicated; K80.20 Calculus of gallbladder without cholecystitis without obstruction; Z68.35 Body mass index [BMI] 35.0-35.9, adult; Z91.011 Allergy to milk products

== ENCOUNTER 2016-11-28 09:21 | Day surgery (SDC) | payer OTHER ==
[~2016-11-28] VITALS: Ht 170.2 cm; Wt 99.3 kg
[~2016-11-28 09:21] MED LIST changes: +LISI-542 PO; +LISI10TA4 PO; -PROA1AER INH; +PROAAER10 INH
[2016-11-28] MEDS ORDERED: LR 1,000 ML IV SCH ×2 (09:30→15:00)
[2016-11-28] MEDS ORDERED: LevoFLOXacin IV 500 MG in APPROPRIATE DILUENT 1 EA IV ONE (09:30)
[2016-11-28] MEDS ORDERED: BUPIVACAINE HCL 0.25% 30 ML VIAL As Ordered ONE (10:13)
[2016-11-28] MEDS ORDERED: LIDOCAINE 1% SDV INJ 30 ML VIAL As Ordered ONE (10:13)
[2016-11-28] MEDS ORDERED: LIDOCAINE 2% INJ 100 MG/5 ML SDV (FOR ANES.) As Ordered ONE (11:42)
[2016-11-28] MEDS ORDERED: ROCURONIUM BROMIDE 50 MG/5 ML VIAL/SYRINGE As Ordered ONE (11:42)
[2016-11-28] MEDS ORDERED: PROPOFOL 200 MG/20 ML VIAL As Ordered ONE (11:42)
[2016-11-28] MEDS ORDERED: fentaNYL 100 MCG/2 ML INJECTION (J3010) As Ordered ONE ×2 (11:43→13:22)
[2016-11-28] MEDS ORDERED: MIDAZOLAM INJ 2 MG/2 ML VIAL (J2250) As Ordered ONE (11:43)
[2016-11-28] MEDS ORDERED: dexameTHASONE 4 MG/ML 1ML VIAL (J1100) As Ordered ONE (13:14)
[2016-11-28] MEDS ORDERED: ESMOLOL INJ 100MG/10ML VIAL As Ordered ONE (13:29)
[2016-11-28] MEDS ORDERED: GLYCOPYRROLATE INJ 0.2 MG/ML 2 ML VIAL As Ordered ONE (14:15)
[2016-11-28] MEDS ORDERED: ONDANSETRON 4MG/2ML VIAL (J2405) As Ordered ONE (14:15)
[2016-11-28] MEDS ORDERED: KETOROLAC 30 MG/ML VIAL (J1885) As Ordered ONE (14:58)
[2016-11-28] MEDS ORDERED: ONDANSETRON 4MG/2ML VIAL (J2405) IV PRN ×2 (15:00→15:15)
[2016-11-28] MEDS ORDERED: fentaNYL 100 MCG/2 ML INJECTION (J3010) IV PRN (15:00)
[2016-11-28] MEDS ORDERED: NORCO, ANEXSIA 5/325MG TABLET (HYDROcodone/ACETAMINOPHEN) PO PRN ×2 (15:15)
[2016-11-28] MEDS ORDERED: KETOROLAC 30 MG/ML VIAL (J1885) IV PRN (15:30)
[2016-11-28 18:00] VITALS: BP 132/78
--- NOTE | 2016-12-30 09:33 | ROOPDOC ---
[facility] Report Of Operation Report of Operation DATE OF PROCEDURE: 11/28/2016 PREPROCEDURE DIAGNOSES: Cholelithiasis, history of gallstone pancreatitis. POSTPROCEDURE DIAGNOSES: cholelithiasis, history of gallstone pancreatitis. PROCEDURE: Laparoscopic cholecystectomy SURGEON: Jony Diamond MD NEWS VIDEOGRAPHER: ANESTHESIA: Gen. anesthesia ESTIMATED BLOOD LOSS: Approximately 10 mL. COMPLICATIONS: None REMARKS: 46-year-old female who back in August was admitted for acute pancreatitis secondary to gallstones. She has recovered from this and she was subsequently sent to my office and she was counseled on laparoscopic cholecystectomy to prevent recurrence. PROCEDURE NOTE: Gallbladder is mildly chronically thickened with no acute inflammation, small stones palpated within the gallbladder. Gallbladder was mildly distended. DESCRIPTION OF PROCEDURE: Patient was given a Levaquin 500 mg IV preoperatively for prophylaxis. She was brought to the operating room, laid supine on the table, compression boots placed for DVT prophylaxis. General endotracheal anesthesia started. Her abdomen then prepped and draped in usual sterile fashion. Surgical timeout was performed prior to starting surgery. Entry into the abdomen done through an incision above the umbilicus. A Veress needle was inserted with a controlled fashion. CO2 insufflation started to pressure 15 mmHg. Using the same incision a 5 mm Visiport was placed under direct vision laparoscope. The area underneath the insertion site was inspected and no injury found. She was then placed in steep reverse Trendelenburg. Her right side was tilted up to further expose the gallbladder. Under direct vision a 11 mm epigastric port and 25 mm working ports placed along the right subcostal line. Operative findings: Her liver is noted to be smooth in contour no nodularities or lesions found. Her gallbladder is mildly thickened, mildly distended. No acute inflammation found. The fundus of the gallbladder was grasped and the gallbladder was elevated superiorly exposing the neck of the gallbladder. The peritoneum overlying the area was opened up and dissected free both anteriorly and posteriorly to help with retraction of the gallbladder. The hepatocystic triangle was approached and dissected using a [place] and instrument. The cystic duct was identified coming off from the next gallbladder this was circumferentially dissected. The cystic artery was identified in its usual position medially behind a small lymph node of [place]. This was similarly circumferentially dissected off surrounding adipose tissue. We continued posterior dissection proximally at the next gallbladder until a critical view of safety was achieved whereby only the previously identified duct and artery coursing through the neck the gallbladder. At this point the cystic artery was clipped 4 times and divided. After again checking her anatomy and verifying that the previously identified cystic duct, this was also clipped 4 times and divided. The rest of the gallbladder was then dissected free of the gallbladder bed using Bovie cautery. There was minimal bleeding at the lateral gallbladder attachments to the liver capsule this was easily controlled with Bovie cautery. The gallbladder was then placed in an Endo Catch bag and retrieved outside through the epigastric port site. Under insufflation and inspected the clips and noted this to be in place. No further bleeding noted. No bile leakage noted. The abdomen was insufflated all ports were removed. The epigastric fascial defect repaired with 0 Vicryl in a mattress fashion. Rest of the skin incisions closed with 4-0 Monocryl in subcuticular fashion. Steri-Strips and gauze dressings were placed, the wound. Patient was informed they awakened, extubated and brought to recovery room stable JONY DIAMOND MD Dec 30, 2016 09:33
== END 2016-11-28 18:10 | disposition home or self-care (01) ==
LOC: M SDC 09:21 → EEVIPCON 11:30 → M SDC 18:10
PROVIDERS: ATTEND Surgery
DX: K80.10 Calculus of gallbladder with chronic cholecystitis without obstruction (principal); K85.10 Biliary acute pancreatitis without necrosis or infection; T88.59XD Other complications of anesthesia, subsequent encounter; I10 Essential (primary) hypertension; F41.9 Anxiety disorder, unspecified; Z88.1 Allergy status to other antibiotic agents; Z79.899 Other long term (current) drug therapy; Z87.440 Personal history of urinary (tract) infections; Z72.0 Tobacco use; Z90.710 Acquired absence of both cervix and uterus; Z87.19 Personal history of other diseases of the digestive system

== ENCOUNTER 2016-12-18 19:01 | Emergency (ER) | payer OTHER ==
[~2016-12-18] VITALS: Ht 170.2 cm; Wt 100.0 kg
[2016-12-18] MEDS ORDERED: diphenhydrAMINE INJ 50MG/ML VIAL (J1200) IV STA (19:53)
[2016-12-18] MEDS ORDERED: dexameTHASONE 20 MG/5 ML VIAL (J1100) IV ONE (20:00)
[2016-12-18] MEDS ORDERED: PRED20TA PO (20:49)
== END 2016-12-18 21:03 | disposition home or self-care (01) ==
LOC: M ED 19:01
DX: L27.0 Generalized skin eruption due to drugs and medicaments taken internally (principal); I10 Essential (primary) hypertension; F17.210 Nicotine dependence, cigarettes, uncomplicated
CPT/HCPCS: 96374; 96375; 99283; J1100; J1200

== ENCOUNTER 2017-05-02 04:48 | Emergency (ER) | payer OTHER ==
[2017-05-02 07:22] LABS: BASO % 0.5 % (0.0-1.0); EOS # 0.2 10^3/uL (0.0-0.50); EOS % 2.1 % (0.0-3.0); HEMATOCRIT 43.6 % (36.0-47.0); IMMATURE GRANULOCYTE % 0.4 % (0-3.0); LYMPH # 2.2 10^3/uL (1.5-4.5); LYMPH % 25.9 % (24.0-44.0); MEAN CORPUSCULAR HEMOGLOBIN 31.3 pg (27.0-33.0); MEAN CORPUSCULAR HGB CONC 34.4 g/dl (32.0-36.5); MONO # 0.7 10^3/uL (0.0-0.8); NEUTROPHILS # 5.4 10^3/uL (1.8-7.7); NEUTROPHILS % 63.1 % (36.0-66.0); PLATELET COUNT, AUTOMATED 205 10^3/uL (150-450); RED BLOOD COUNT 4.79 10^6/uL (4.00-5.40); RED CELL DISTRIBUTION WIDTH 12.1 % (11.5-14.5); WHITE BLOOD COUNT 8.5 10^3/uL (4.0-10.0)
[2017-05-02 07:33] LABS: CONTROL LINE HCG INT CTR LINE PRESENT; HCG, SERUM QUALITATIVE NEGATIVE (NEGATIVE)
[2017-05-02 07:41] LABS: ALBUMIN/GLOBULIN RATIO 1.18 (1.00-1.93); ALKALINE PHOSPHATASE 110 U/L (45-117); ALT/SGPT 18 U/L (12-78); ANION GAP 8 MEQ/L (8-16); AST/SGOT 14 U/L (7-37); BILIRUBIN,TOTAL 0.4 MG/DL (0.2-1.0); BLOOD UREA NITROGEN 15 MG/DL (7-18); CALCIUM LEVEL 8.8 MG/DL (8.5-10.1); CARBON DIOXIDE LEVEL 28 MEQ/L (21-32); CHLORIDE LEVEL 107 MEQ/L (98-107); CREATININE FOR GFR 0.64 MG/DL (0.55-1.30); GLOMERULAR FILTRATION RATE > 60.0 (>58); GLUCOSE, FASTING 90 MG/DL (70-100); SODIUM LEVEL 143 MEQ/L (136-145); TOTAL PROTEIN 7.4 GM/DL (6.4-8.2)
[2017-05-02] MEDS: EXPOSURE KIT-ADULT 7 DAY SUPPLY PO (07:42)
[2017-05-02] MEDS: HEPATITIS B IMMUNE GLOBULIN 5ML INJ (J1571) IM (07:43)
[2017-05-02] MEDS: ADACEL/BOOSTRIX VACCINE (DIPHTH/PERTUSS/ACELL/TETANUS)0.5ML SYR (90715) IM (07:43)
[2017-05-02] MEDS: [UNRECOGNIZED DRUG - OTHER] IM (07:52)
[2017-05-02 08:32] LABS: CONTROL LINE INT CTR LINE PRESENT; HIV SCRN NEGATIVE (NEGATIVE); HIV SCRN1 NEGATIVE (NEGATIVE)
[2017-05-04 11:32] LABS: HEPATITIS B SURFACE ANTIBODY NEGATIVE (POSITIVE)
[2017-05-04 11:40] LABS: HEPATITIS B SURFACE ANTIGEN NEGATIVE (NEGATIVE)
[2017-05-04 12:07] LABS: HEPATITIS C VIRUS ABY INDEX 0.1 INDEX (<0.8)
== END 2017-05-02 09:22 | disposition home or self-care (01) ==
LOC: M ED 04:48
DX: Z77.21 Contact with and (suspected) exposure to potentially hazardous body fluids (principal); S61.431A Puncture wound without foreign body of right hand, initial encounter; W46.0XXA Contact with hypodermic needle, initial encounter; Y92.512 Supermarket, store or market as the place of occurrence of the external cause; Y93.89 Activity, other specified; Y99.0 Civilian activity done for income or pay; R25.8 Other abnormal involuntary movements; F17.210 Nicotine dependence, cigarettes, uncomplicated; Z88.0 Allergy status to penicillin
CPT/HCPCS: 90715

== ENCOUNTER 2017-05-08 13:12 | Emergency (ER) | payer OTHER ==
[2017-05-08] MEDS: LISINOPRIL 10 MG TAB PO (15:20)
[2017-05-08] MEDS: ONDANSETRON 4 MG ORAL DISINTEGRATING TAB (S0181) PO (15:20)
[2017-05-08 15:44] LABS: BASO # 0.1 10^3/uL (0.0-0.2); BASO % 0.5 % (0.0-1.0); EOS # 0.1 10^3/uL (0.0-0.50); HEMATOCRIT 44.9 % (36.0-47.0); HEMOGLOBIN 15.5 g/dl (12.0-16.0); IMMATURE GRANULOCYTE % 0.3 % (0-3.0); LYMPH % 19.5 % (24.0-44.0); MEAN CORPUSCULAR HEMOGLOBIN 31.2 pg (27.0-33.0); MEAN CORPUSCULAR HGB CONC 34.5 g/dl (32.0-36.5); MEAN CORPUSCULAR VOLUME 90.3 fl (80.0-96.0); MONO # 0.6 10^3/uL (0.0-0.8); MONO % 5.4 % (0.0-5.0); NEUTROPHILS # 7.5 10^3/uL (1.8-7.7); NEUTROPHILS % 73.3 % (36.0-66.0); RED BLOOD COUNT 4.97 10^6/uL (4.00-5.40); RED CELL DISTRIBUTION WIDTH 12.3 % (11.5-14.5); WHITE BLOOD COUNT 10.2 10^3/uL (4.0-10.0)
[2017-05-08 15:50] LABS: APPEARANCE, URINE HAZY (CLEAR); BACTERIA, URINE AUTO 1+ (NEGATIVE); BILIRUBIN, URINE AUTO NEGATIVE (NEGATIVE); BLOOD, URINE BLOOD NEGATIVE (NEGATIVE); COLOR, URINE YELLOW (YELLOW); GLUCOSE, URINE (UA) AUTO NEGATIVE (NEGATIVE); KETONE, URINE AUTO NEGATIVE (NEGATIVE); LEUKOCYTE ESTERASE, URINE AUTO 3+ (NEGATIVE); MUCUS, URINE SMALL (NEGATIVE); NITRITE, URINE AUTO NEGATIVE (NEGATIVE); PROTEIN, URINE AUTO NEGATIVE (NEGATIVE); RBC, URINE AUTO 4 /HPF (0-3); SPECIFIC GRAVITY URINE AUTO 1.011 (1.002-1.035); SQUAMOUS EPITHELIAL CELL UR AU 1 /HPF (0-6); UROBILINOGEN, URINE AUTO 0.2 mg/dL (0.0-2.0); WBC, URINE AUTO 62 /HPF (0-3)
[2017-05-08 15:56] LABS: ALBUMIN 3.7 GM/DL (3.2-5.2); ALBUMIN/GLOBULIN RATIO 0.95 (1.00-1.93); ALKALINE PHOSPHATASE 101 U/L (45-117); ALT/SGPT 20 U/L (12-78); ANION GAP 6 MEQ/L (8-16); AST/SGOT 10 U/L (7-37); BILIRUBIN,DIRECT < 0.1 MG/DL (0.0-0.2); BILIRUBIN,TOTAL 0.3 MG/DL (0.2-1.0); BLOOD UREA NITROGEN 10 MG/DL (7-18); CARBON DIOXIDE LEVEL 28 MEQ/L (21-32); CHLORIDE LEVEL 106 MEQ/L (98-107); CPK CREATINE PHOSPHOKINASE 111 U/L (26-192); CREATININE FOR GFR 0.67 MG/DL (0.55-1.30); GLOMERULAR FILTRATION RATE > 60.0 (>58); GLUCOSE, FASTING 113 MG/DL (70-100); POTASSIUM SERUM 4.2 MEQ/L (3.5-5.1); SODIUM LEVEL 140 MEQ/L (136-145); TOTAL PROTEIN 7.6 GM/DL (6.4-8.2)
[2017-05-08 16:01] LABS: PLATELET COUNT, AUTOMATED 198 10^3/uL (150-450); POS COUNT POS FLAG
== END 2017-05-08 16:49 | disposition home or self-care (01) ==
LOC: M ED 13:12
DX: R11.2 Nausea with vomiting, unspecified (principal); R53.1 Weakness; R51 Headache; T37.5X5A Adverse effect of antiviral drugs, initial encounter; Y92.89 Other specified places as the place of occurrence of the external cause; I10 Essential (primary) hypertension; F17.210 Nicotine dependence, cigarettes, uncomplicated; Z79.899 Other long term (current) drug therapy
CPT/HCPCS: 82550

== ENCOUNTER → 2017-05-29 | Outpatient (CLI) | payer OTHER ==
[2017-05-29 13:25] LABS: HEPATITIS B SURFACE ANTIGEN NEGATIVE (NEGATIVE)
[2017-05-29 13:53] LABS: HIV 1&2 SCREEN CENTAUR NEGATIVE (NEGATIVE)
== END ==
LOC: M LAB 12:03
DX: T14.8XXA Other injury of unspecified body region, initial encounter (principal); W46.0XXA Contact with hypodermic needle, initial encounter; Y92.89 Other specified places as the place of occurrence of the external cause; Y93.89 Activity, other specified; Y99.8 Other external cause status
CPT/HCPCS: 87340

== ENCOUNTER 2017-06-16 15:05 | Emergency (ER) | payer OTHER ==
[2017-06-16] MEDS: IBUPROFEN 600 MG TAB PO (18:12)
== END 2017-06-16 19:57 | disposition home or self-care (01) ==
LOC: M ED 15:05
DX: M79.645 Pain in left finger(s) (principal); I10 Essential (primary) hypertension; F17.200 Nicotine dependence, unspecified, uncomplicated; Z79.899 Other long term (current) drug therapy; Z88.0 Allergy status to penicillin
CPT/HCPCS: 73140

== ENCOUNTER 2017-07-22 20:14 | Emergency (ER) | payer OTHER ==
[2017-07-22] MEDS: ONDANSETRON 4 MG ORAL DISINTEGRATING TAB (Q0162 PER 1MG) PO (21:03)
[2017-07-22] MEDS: METOCLOPRAMIDE INJ 10MG/2ML VIAL (J2765) IV (21:50)
[2017-07-22] MEDS: NS 1,000 ML IV (21:50)
[2017-07-22 22:04] LABS: BASO % 0.3 % (0.0-1.0); EOS % 0.4 % (0.0-3.0); HEMATOCRIT 43.3 % (36.0-47.0); HEMOGLOBIN 14.8 g/dl (12.0-15.5); IMMATURE GRANULOCYTE % 0.4 % (0-3.0); LYMPH # 1.7 10^3/uL (1.5-4.5); LYMPH % 15.7 % (24.0-44.0); MEAN CORPUSCULAR HEMOGLOBIN 31.1 pg (27.0-33.0); MEAN CORPUSCULAR HGB CONC 34.2 g/dl (32.0-36.5); MONO # 0.4 10^3/uL (0.0-0.8); MONO % 3.9 % (0.0-5.0); NEUTROPHILS # 8.7 10^3/uL (1.8-7.7); NEUTROPHILS % 79.3 % (36.0-66.0); PLATELET COUNT, AUTOMATED 205 10^3/uL (150-450); RED BLOOD COUNT 4.76 10^6/uL (4.00-5.40); RED CELL DISTRIBUTION WIDTH 12.6 % (11.5-14.5)
[2017-07-22 22:26] LABS: ALBUMIN 3.4 GM/DL (3.2-5.2); ALBUMIN/GLOBULIN RATIO 0.92 (1.00-1.93); ALKALINE PHOSPHATASE 111 U/L (45-117); ALT/SGPT 18 U/L (12-78); ANION GAP 4 MEQ/L (8-16); AST/SGOT 14 U/L (7-37); BILIRUBIN,DIRECT < 0.1 MG/DL (0.0-0.2); BILIRUBIN,TOTAL 0.5 MG/DL (0.2-1.0); BLOOD UREA NITROGEN 11 MG/DL (7-18); CALCIUM LEVEL 8.7 MG/DL (8.5-10.1); CARBON DIOXIDE LEVEL 28 MEQ/L (21-32); CHLORIDE LEVEL 108 MEQ/L (98-107); CREATININE FOR GFR 0.62 MG/DL (0.55-1.30); GLOMERULAR FILTRATION RATE > 60.0 (>58); GLUCOSE, FASTING 125 MG/DL (70-100); LIPASE 66 U/L (73-393); SODIUM LEVEL 140 MEQ/L (136-145); TOTAL PROTEIN 7.1 GM/DL (6.4-8.2)
[2017-07-22 23:03] LABS: APPEARANCE, URINE HAZY (CLEAR); BACTERIA, URINE AUTO 2+ (NEGATIVE); BILIRUBIN, URINE AUTO NEGATIVE (NEGATIVE); BLOOD, URINE BLOOD 1+ (NEGATIVE); COLOR, URINE YELLOW (YELLOW); GLUCOSE, URINE (UA) AUTO NEGATIVE (NEGATIVE); KETONE, URINE AUTO TRACE mg/dL (NEGATIVE); LEUKOCYTE ESTERASE, URINE AUTO NEGATIVE (NEGATIVE); MUCUS, URINE SMALL (NEGATIVE); NITRITE, URINE AUTO POSITIVE (NEGATIVE); PROTEIN, URINE AUTO NEGATIVE (NEGATIVE); RBC, URINE AUTO 3 /HPF (0-3); SPECIFIC GRAVITY URINE AUTO 1.012 (1.002-1.035); SQUAMOUS EPITHELIAL CELL UR AU 1 /HPF (0-6); UROBILINOGEN, URINE AUTO 0.2 mg/dL (0.0-2.0); WBC, URINE AUTO 1 /HPF (0-3)
[2017-07-22] MEDS: NITROFURANTOIN (MACROBID) 100 MG CAP PO (23:33)
== END 2017-07-22 23:32 | disposition home or self-care (01) ==
LOC: M ED 20:14
DX: A08.4 Viral intestinal infection, unspecified (principal); N30.90 Cystitis, unspecified without hematuria; I10 Essential (primary) hypertension; Z79.899 Other long term (current) drug therapy; Z88.0 Allergy status to penicillin; F17.210 Nicotine dependence, cigarettes, uncomplicated
CPT/HCPCS: Q0162

== ENCOUNTER → 2017-08-04 | Outpatient (REF) | payer OTHER ==
[2017-08-05 09:45] LABS: HEPATITIS B SURFACE ANTIGEN NEGATIVE (NEGATIVE)
[2017-08-05 10:06] LABS: HIV 1&2 SCREEN CENTAUR NEGATIVE (NEGATIVE)
[2017-08-05 10:06] LABS: HEPATITIS C VIRUS ABY INDEX < 0.0 INDEX (<0.8)
== END ==
LOC: M SFHCPLAZ 11:19
DX: Z77.21 Contact with and (suspected) exposure to potentially hazardous body fluids (principal); W46.0XXA Contact with hypodermic needle, initial encounter; Y92.89 Other specified places as the place of occurrence of the external cause

== ENCOUNTER 2018-05-01 03:12 | Emergency (ER) | payer OTHER ==
[~2018-05-01] VITALS: Ht 170.2 cm; Wt 104.5 kg
[~2018-05-01 03:12] MED LIST changes: +MACR100C43 PO; -PEPC1TAB4 PO; +PEPC1TAB5 PO; +RALT40TA PO; +TRUVTAB PO; +ZOFR4TAB14 PO
[2018-05-01] MEDS ORDERED: ASPIRIN 81 MG CHEW TABLET PO ONE (03:45)
[2018-05-01] MEDS ORDERED: NITROGLYCERIN 0.4 MG SUBL TABLET SL PRN (03:45)
[2018-05-01 04:12] LABS: BASO # 0.1 10^3/uL (0.0-0.2); BASO % 0.5 % (0.0-1.0); EOS # 0.2 10^3/uL (0.0-0.50); HEMATOCRIT 46.2 % (36.0-47.0); HEMOGLOBIN 15.2 g/dl (12.0-15.5); LYMPH % 30.1 % (24.0-44.0); MEAN CORPUSCULAR HGB CONC 32.9 g/dl (32.0-36.5); MEAN CORPUSCULAR VOLUME 94.3 fl (80.0-96.0); MONO # 0.6 10^3/uL (0.0-0.8); MONO % 5.7 % (0.0-5.0); NEUTROPHILS # 6.2 10^3/uL (1.8-7.7); NEUTROPHILS % 61.3 % (36.0-66.0); PLATELET COUNT, AUTOMATED 210 10^3/uL (150-450); WHITE BLOOD COUNT 10.1 10^3/uL (4.0-10.0)
[2018-05-01 04:48] LABS: BLOOD UREA NITROGEN 19 MG/DL (7-18); CALCIUM LEVEL 8.7 MG/DL (8.5-10.1); CARBON DIOXIDE LEVEL 30 MEQ/L (21-32); CHLORIDE LEVEL 106 MEQ/L (98-107); CPK CREATINE PHOSPHOKINASE 118 U/L (26-192); CREATININE FOR GFR 0.97 MG/DL (0.55-1.30); GLOMERULAR FILTRATION RATE > 60.0 (>58); GLUCOSE, FASTING 124 MG/DL (70-100); MB/CK RELATIVE INDEX 1.69 (< OR =4); POTASSIUM SERUM 4.6 MEQ/L (3.5-5.1); SODIUM LEVEL 142 MEQ/L (136-145); TROPONIN I < 0.02 NG/ML (< 0.10)
--- NOTE | 2018-05-01 09:08 | REP ---
AP PORTABLE CHEST: 05/01/2018. CLINICAL HISTORY: Chest pain. COMPARISON: 07/19/2016 FINDINGS: Lung estrada well inflated without infiltrate, effusion, atelectasis, or mass. No pneumothorax or pneumomediastinum. The heart, mediastinal and hilar contours are normal. The aorta and airway are intact. There are minor degenerative changes in the spine and AC joints. No free air under the diaphragm. IMPRESSION: 1. No acute cardiopulmonary disease, stable chest. Electronically Signed by Gianni Salinas MD 05/01/2018 09:33 A
[2018-05-01 09:37] LABS: CPK CREATINE PHOSPHOKINASE 83 U/L (26-192); MB/CK RELATIVE INDEX 2.05 (< OR =4); TROPONIN I < 0.02 NG/ML (< 0.10)
[2018-05-01 10:00] VITALS: BP 151/89
--- NOTE | 2018-05-01 19:34 | ECGEPIP ---
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 : 1970 Requested By: BRENNAN Chavez Order Number: [id number] Reading MD: Indira Nieto Measurements Intervals [place] Rate: 79 P: 29 MO: 211 QRS: 27 QRSD: 77 T: 30 QT: 369 QTc: 424 Interpretive Statements SINUS RHYTHM WITH FIRST DEGREE AV BLOCK NONSPECIFIC ST & T-WAVE ABNORMALITY INCREASED RATE 05/31/15 Electronically Signed On 05-01-2018 19:33:57 EST by Indira Nieto
--- NOTE | 2018-05-01 19:35 | ECGEPIP ---
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
== END 2018-05-01 10:08 | disposition home or self-care (01) ==
LOC: M ED 03:12
DX: R07.9 Chest pain, unspecified (principal); R00.2 Palpitations; I10 Essential (primary) hypertension; Z88.0 Allergy status to penicillin; F17.210 Nicotine dependence, cigarettes, uncomplicated

== ENCOUNTER → 2018-09-25 | Outpatient (REF) | payer OTHER | LOC: M LAB REF 10:37 | PROVIDERS: ATTEND Physician Assistant | DX: R30.0 Dysuria (principal) ==

== ENCOUNTER 2018-10-22 13:00 | Emergency (ER) | payer OTHER ==
[~2018-10-22] VITALS: Ht 170.2 cm; Wt 113.9 kg
[2018-10-22 15:50] LABS: APPEARANCE, URINE HAZY (CLEAR); BACTERIA, URINE AUTO 1+ (NEGATIVE); BILIRUBIN, URINE AUTO NEGATIVE (NEGATIVE); BLOOD, URINE BLOOD NEGATIVE (NEGATIVE); COLOR, URINE YELLOW (YELLOW); GLUCOSE, URINE (UA) AUTO NEGATIVE (NEGATIVE); KETONE, URINE AUTO NEGATIVE (NEGATIVE); LEUKOCYTE ESTERASE, URINE AUTO 2+ (NEGATIVE); MUCUS, URINE SMALL (NEGATIVE); NITRITE, URINE AUTO NEGATIVE (NEGATIVE); PROTEIN, URINE AUTO NEGATIVE (NEGATIVE); RBC, URINE AUTO 3 /HPF (0-3); SPECIFIC GRAVITY URINE AUTO 1.018 (1.002-1.035); SQUAMOUS EPITHELIAL CELL UR AU 1 /HPF (0-6); WBC, URINE AUTO 12 /HPF (0-3)
[2018-10-22] MEDS ORDERED: MACR100C43 PO (16:44)
[2018-10-22 17:03] VITALS: BP 148/74
[2018-10-23] MEDS ORDERED: PROAAER10 INH (09:42)
--- NOTE | 2018-10-23 09:59 | REP ---
CHEST, TWO VIEWS: Two views of the chest are performed and compared to prior studies including 05/01/2018 and 07/19/2016. There is mild chronic interstitial change in both lungs with no evidence of superimposed acute infiltrate. The heart is normal in size. Mediastinal silhouette is unchanged. There are mild degenerative changes of the spine. IMPRESSION: Mild stable chronic findings. No acute infiltrate. Electronically Signed by Manuel Kern MD 10/25/2018 11:39 A
[2018-10-23] MEDS ORDERED: ONDA4TAB6 PO (10:08)
== END 2018-10-22 17:04 | disposition home or self-care (01) ==
LOC: M ED 13:00
DX: N39.0 Urinary tract infection, site not specified (principal); I10 Essential (primary) hypertension; Z88.0 Allergy status to penicillin; F17.210 Nicotine dependence, cigarettes, uncomplicated

== ENCOUNTER 2018-10-23 02:06 | Emergency (ER) | payer OTHER ==
[~2018-10-23] VITALS: Ht 170.2 cm; Wt 115.9 kg
[2018-10-23] MEDS ORDERED: GI COCKTAIL 50ML BTL(HYOSCYAMINE/MAALOX/LIDOCAINE VISCOUS)(1:3:1) PO ONE (07:15)
[2018-10-23 08:13] LABS: BASO % 0.1 % (0.0-1.0); EOS % 0.1 % (0.0-3.0); HEMATOCRIT 43.2 % (36.0-47.0); HEMOGLOBIN 14.7 g/dl (12.0-15.5); LYMPH # 1.4 10^3/uL (1.5-4.5); LYMPH % 9.5 % (24.0-44.0); MEAN CORPUSCULAR HEMOGLOBIN 31.1 pg (27.0-33.0); MEAN CORPUSCULAR VOLUME 91.3 fl (80.0-96.0); MONO # 0.5 10^3/uL (0.0-0.8); MONO % 3.3 % (0.0-5.0); NEUTROPHILS # 13.2 10^3/uL (1.8-7.7); NEUTROPHILS % 86.5 % (36.0-66.0); PLATELET COUNT, AUTOMATED 204 10^3/uL (150-450); RED BLOOD COUNT 4.73 10^6/uL (4.00-5.40); WHITE BLOOD COUNT 15.2 10^3/uL (4.0-10.0)
--- NOTE | 2018-10-23 08:17 | ECGEPIP ---
[facility] - ED Test Date: 2018-10-23 Pat Name: MAVERICK NIELSON Department: Room: - Gender: Female Movers: pmo : 1970 Requested By: PO Brown PA-C Order Number: [id number] Reading MD: Indira Nieto Measurements Intervals [place] Rate: 66 P: 21 ID: 184 QRS: 74 QRSD: 88 T: 82 QT: 386 QTc: 407 Interpretive Statements SINUS RHYTHM NONSPECIFIC T-WAVE ABNORMALITY COMPARED 05/01/18 Electronically Signed on 10-23-2018 8:17:20 EDT by Indira Nieto
[2018-10-23 08:35] LABS: BLOOD UREA NITROGEN 17 MG/DL (7-18); CALCIUM LEVEL 8.6 MG/DL (8.5-10.1); CARBON DIOXIDE LEVEL 28 MEQ/L (21-32); CHLORIDE LEVEL 110 MEQ/L (98-107); CK-MB VALUE MASS 2.6 NG/ML (<3.6); CPK CREATINE PHOSPHOKINASE 95 U/L (26-192); CREATININE FOR GFR 0.64 MG/DL (0.55-1.30); GLOMERULAR FILTRATION RATE > 60.0 (>58); GLUCOSE, FASTING 109 MG/DL (70-100); MB/CK RELATIVE INDEX 2.74 (< OR =4); POTASSIUM SERUM 4.2 MEQ/L (3.5-5.1); SODIUM LEVEL 143 MEQ/L (136-145); TROPONIN I < 0.02 NG/ML (< 0.10)
[2018-10-23] MEDS ORDERED: ALBUTEROL SULFATE 2.5 MG/0.5 ML INH NEB SOLN NEB ONE (08:45)
[2018-10-23] MEDS ORDERED: PROAAER10 INH (09:42)
--- NOTE | 2018-10-23 09:59 | REP ---
HISTORY: Epigastric pain. COMPARISON: 10/22/2018 FINDINGS: The superior mediastinal structures are midline. The cardiac silhouette is unremarkable in size, shape and position. The diaphragmatic surfaces of the lungs are regular and the costophrenic angles are clear. The pulmonary estrada are clear. The imaged osseous structures are intact. IMPRESSION: There is no acute cardiopulmonary disease. There is no significant change from the prior exam. Electronically Signed by Milad Lester DO 10/23/2018 09:10 A
[2018-10-23] MEDS ORDERED: ONDA4TAB6 PO (10:08)
[2018-10-23 10:35] VITALS: BP 137/77
== END 2018-10-23 10:37 | disposition home or self-care (01) ==
LOC: M ED 02:06
DX: R10.13 Epigastric pain (principal); R06.2 Wheezing; D72.829 Elevated white blood cell count, unspecified; R11.2 Nausea with vomiting, unspecified; I10 Essential (primary) hypertension; Z87.440 Personal history of urinary (tract) infections; Z88.0 Allergy status to penicillin; F17.210 Nicotine dependence, cigarettes, uncomplicated

== ENCOUNTER → 2018-10-25 | Outpatient (REF) | payer OTHER ==
[~2018-10-25] MED LIST changes: +ONDA4TAB6 PO
[2018-10-25 17:41] LABS: BASO % 0.3 % (0.0-1.0); EOS # 0.2 10^3/uL (0.0-0.50); EOS % 1.5 % (0.0-3.0); HEMATOCRIT 45.9 % (36.0-47.0); HEMOGLOBIN 15.7 g/dl (12.0-15.5); LYMPH # 1.9 10^3/uL (1.5-4.5); LYMPH % 16.1 % (24.0-44.0); MEAN CORPUSCULAR HGB CONC 34.2 g/dl (32.0-36.5); MEAN CORPUSCULAR VOLUME 93.7 fl (80.0-96.0); MONO # 0.8 10^3/uL (0.0-0.8); MONO % 6.4 % (0.0-5.0); NEUTROPHILS # 8.8 10^3/uL (1.8-7.7); NEUTROPHILS % 74.9 % (36.0-66.0); PLATELET COUNT, AUTOMATED 225 10^3/uL (150-450); WHITE BLOOD COUNT 11.8 10^3/uL (4.0-10.0)
[2018-10-25 18:00] LABS: ALBUMIN 3.8 GM/DL (3.2-5.2); ALT/SGPT 33 U/L (12-78); BILIRUBIN,TOTAL 0.3 MG/DL (0.2-1.0); BLOOD UREA NITROGEN 11 MG/DL (7-18); CALCIUM LEVEL 9.2 MG/DL (8.5-10.1); CARBON DIOXIDE LEVEL 28 MEQ/L (21-32); CHLORIDE LEVEL 107 MEQ/L (98-107); CREATININE FOR GFR 0.68 MG/DL (0.55-1.30); GLOMERULAR FILTRATION RATE > 60.0 (>58); GLUCOSE, FASTING 82 MG/DL (70-100); POTASSIUM SERUM 3.5 MEQ/L (3.5-5.1); SODIUM LEVEL 140 MEQ/L (136-145); TOTAL PROTEIN 7.3 GM/DL (6.4-8.2)
== END ==
LOC: M SFHCPLAZ 15:39
PROVIDERS: ATTEND Nurse Practitioner Family
DX: R19.7 Diarrhea, unspecified (principal)

== ENCOUNTER → 2018-12-07 | Outpatient (REF) | payer OTHER ==
[2018-12-07 09:59] LABS: BASO # 0.1 10^3/uL (0.0-0.2); BASO % 0.6 % (0.0-1.0); EOS # 0.3 10^3/uL (0.0-0.5); EOS % 2.9 % (0.0-3.0); HEMATOCRIT 46.5 % (36.0-47.0); HEMOGLOBIN 15.6 g/dl (12.0-15.5); LYMPH % 33.9 % (24.0-44.0); MEAN CORPUSCULAR HEMOGLOBIN 31.9 pg (27.0-33.0); MEAN CORPUSCULAR HGB CONC 33.5 g/dl (32.0-36.5); MEAN CORPUSCULAR VOLUME 95.1 fl (80.0-96.0); MONO # 0.7 10^3/uL (0.0-0.8); MONO % 7.7 % (0.0-5.0); NEUTROPHILS # 4.9 10^3/uL (1.5-8.5); NEUTROPHILS % 54.6 % (36.0-66.0); PLATELET COUNT, AUTOMATED 214 10^3/uL (150-450); RED BLOOD COUNT 4.89 10^6/uL (4.00-5.40)
[2018-12-07 10:03] LABS: ALBUMIN 3.4 GM/DL (3.2-5.2); ALT/SGPT 23 U/L (12-78); BILIRUBIN,TOTAL 0.3 MG/DL (0.2-1.0); BLOOD UREA NITROGEN 11 MG/DL (7-18); CALCIUM LEVEL 8.8 MG/DL (8.5-10.1); CARBON DIOXIDE LEVEL 27 MEQ/L (21-32); CHLORIDE LEVEL 110 MEQ/L (98-107); CHOLESTEROL LEVEL 166 MG/DL (<200); CHOLESTEROL RISK RATIO 3.387 (<5); CREATININE FOR GFR 0.62 MG/DL (0.55-1.30); GLOMERULAR FILTRATION RATE > 60.0 (>58); GLUCOSE, FASTING 97 MG/DL (70-100); HDL CHOLESTEROL 49 MG/DL (>40); LDL CHOLESTEROL 92 MG/DL (<100); NON-HDL-C 117 MG/DL; POTASSIUM SERUM 4.1 MEQ/L (3.5-5.1); SODIUM LEVEL 142 MEQ/L (136-145); TOTAL PROTEIN 6.8 GM/DL (6.4-8.2); TRIGLYCERIDES LEVEL 125 MG/DL (<150)
[2018-12-07 10:10] LABS: TOTAL 25(OH) VITAMIN D 14.3 NG/ML (30.0-100.0)
[2018-12-07 10:38] LABS: HEMOGLOBIN A1c 5.4 %
== END ==
LOC: M SFHCPLAZ 07:53
PROVIDERS: ATTEND Family Medicine
DX: D72.829 Elevated white blood cell count, unspecified (principal); I10 Essential (primary) hypertension; R73.01 Impaired fasting glucose; E78.2 Mixed hyperlipidemia; E55.9 Vitamin D deficiency, unspecified

== ENCOUNTER 2018-12-29 11:58 | Emergency (ER) | payer OTHER ==
[~2018-12-29] VITALS: Ht 170.2 cm; Wt 112.3 kg
[2018-12-29] MEDS ORDERED: NS 1,000 ML IV ONE (12:30)
[2018-12-29] MEDS ORDERED: GI COCKTAIL 50ML BTL(HYOSCYAMINE/MAALOX/LIDOCAINE VISCOUS)(1:3:1) PO ONE (12:30)
[2018-12-29] MEDS ORDERED: KETOROLAC 30 MG/ML VIAL (J1885) IV ONE (12:30)
[2018-12-29 12:43] LABS: BASO # 0.1 10^3/uL (0.0-0.2); BASO % 0.4 % (0.0-1.0); EOS # 0.2 10^3/uL (0.0-0.5); EOS % 1.3 % (0.0-3.0); HEMOGLOBIN 15.1 g/dl (12.0-15.5); LYMPH # 2.2 10^3/uL (1.5-5.0); LYMPH % 18.9 % (24.0-44.0); MEAN CORPUSCULAR HGB CONC 33.6 g/dl (32.0-36.5); MEAN CORPUSCULAR VOLUME 92.4 fl (80.0-96.0); MONO # 0.7 10^3/uL (0.0-0.8); MONO % 5.8 % (0.0-5.0); NEUTROPHILS # 8.5 10^3/uL (1.5-8.5); NEUTROPHILS % 73.2 % (36.0-66.0); PLATELET COUNT, AUTOMATED 236 10^3/uL (150-450); RED BLOOD COUNT 4.87 10^6/uL (4.00-5.40); WHITE BLOOD COUNT 11.7 10^3/uL (4.0-10.0)
[2018-12-29 13:08] LABS: ALBUMIN 3.6 GM/DL (3.2-5.2); ALT/SGPT 20 U/L (12-78); AMYLASE 38 U/L (25-115); BILIRUBIN,DIRECT 0.1 MG/DL (0.0-0.2); BILIRUBIN,TOTAL 0.4 MG/DL (0.2-1.0); BLOOD UREA NITROGEN 8 MG/DL (7-18); CALCIUM LEVEL 9.2 MG/DL (8.5-10.1); CARBON DIOXIDE LEVEL 26 MEQ/L (21-32); CHLORIDE LEVEL 109 MEQ/L (98-107); CREATININE FOR GFR 0.69 MG/DL (0.55-1.30); GLOMERULAR FILTRATION RATE > 60.0 (>58); GLUCOSE, FASTING 103 MG/DL (70-100); LIPASE 93 U/L (73-393); POTASSIUM SERUM 4.2 MEQ/L (3.5-5.1); SODIUM LEVEL 141 MEQ/L (136-145); TOTAL PROTEIN 7.3 GM/DL (6.4-8.2)
--- NOTE | 2018-12-29 14:10 | REP ---
REASON FOR EXAM: Abdominal pain. PRIORS: None. The frontal view of the chest has been compared to a previous two view examination of the chest of 10/23/2018. The frontal view of the chest is clear. There are a few gas filled nondilated small bowel loops in the abdomen. There is no evidence of intestinal obstruction or free intraperitoneal air. The osseous structures are within normal limits for the patient's age. IMPRESSION: Possible early small bowel ileus. Electronically Signed by Milad Lester DO 12/29/2018 02:35 P
[2018-12-29] MEDS ORDERED: PRIL20TA2 PO (14:26)
[2018-12-29] MEDS ORDERED: NAPR-837 PO (14:26)
[2018-12-29 14:30] VITALS: BP 161/90
--- NOTE | 2018-12-30 06:17 | ED PDOC ---
Post-Departure Follow-Up jerry rangel faxed formal report of abdl series for fu Reza Ruelas MD Dec 30, 2018 06:17
== END 2018-12-29 14:52 | disposition home or self-care (01) ==
LOC: M ED 11:58
DX: K29.70 Gastritis, unspecified, without bleeding (principal); K21.9 Gastro-esophageal reflux disease without esophagitis; M54.5 Low back pain; E11.9 Type 2 diabetes mellitus without complications; I10 Essential (primary) hypertension; Z79.899 Other long term (current) drug therapy; Z88.0 Allergy status to penicillin; Z91.018 Allergy to other foods; F17.210 Nicotine dependence, cigarettes, uncomplicated
CPT/HCPCS: 74021; 80048; 80076; 81001; 82150; 83690; 85025; 87088; 87186; 96361; 96374; 99284; J1885

== ENCOUNTER 2019-01-30 21:41 | Emergency (ER) | payer OTHER ==
[~2019-01-30] VITALS: Ht 170.2 cm; Wt 113.6 kg
[~2019-01-30 21:41] MED LIST changes: +NAPR-837 PO; +PRIL20TA2 PO
[2019-01-30] MEDS ORDERED: ASPIRIN 81 MG CHEW TABLET PO ONE (22:30)
[2019-01-30] MEDS ORDERED: NITROGLYCERIN 0.4 MG SUBL TABLET SL PRN (22:30)
[2019-01-30 22:38] LABS: BASO % 0.3 % (0.0-1.0); EOS # 0.2 10^3/uL (0.0-0.5); EOS % 1.4 % (0.0-3.0); HEMATOCRIT 41.5 % (36.0-47.0); HEMOGLOBIN 13.9 g/dl (12.0-15.5); LYMPH # 2.9 10^3/uL (1.5-5.0); LYMPH % 25.2 % (24.0-44.0); MEAN CORPUSCULAR HEMOGLOBIN 31.2 pg (27.0-33.0); MEAN CORPUSCULAR HGB CONC 33.5 g/dl (32.0-36.5); MEAN CORPUSCULAR VOLUME 93.3 fl (80.0-96.0); MONO # 0.9 10^3/uL (0.0-0.8); MONO % 7.5 % (0.0-5.0); NEUTROPHILS # 7.6 10^3/uL (1.5-8.5); NEUTROPHILS % 65.3 % (36.0-66.0); PLATELET COUNT, AUTOMATED 199 10^3/uL (150-450); RED BLOOD COUNT 4.45 10^6/uL (4.00-5.40); WHITE BLOOD COUNT 11.6 10^3/uL (4.0-10.0)
[2019-01-30 22:47] VITALS: BP 186/101
[2019-01-30 23:25] LABS: ALBUMIN 3.2 GM/DL (3.2-5.2); ALT/SGPT 23 U/L (12-78); BILIRUBIN,DIRECT < 0.1 MG/DL (0.0-0.2); BILIRUBIN,TOTAL 0.6 MG/DL (0.2-1.0); BLOOD UREA NITROGEN 13 MG/DL (7-18); CALCIUM LEVEL 8.7 MG/DL (8.5-10.1); CARBON DIOXIDE LEVEL 27 MEQ/L (21-32); CHLORIDE LEVEL 108 MEQ/L (98-107); CPK CREATINE PHOSPHOKINASE 223 U/L (26-192); CREATININE FOR GFR 0.76 MG/DL (0.55-1.30); GLOMERULAR FILTRATION RATE > 60.0 (>58); GLUCOSE, FASTING 128 MG/DL (70-100); LIPASE 70 U/L (73-393); SODIUM LEVEL 142 MEQ/L (136-145); TOTAL PROTEIN 6.6 GM/DL (6.4-8.2); TROPONIN I < 0.02 NG/ML (< 0.10)
[2019-01-31] MEDS ORDERED: ISOVUE-370 76% 100ML VIAL (Q9967) As Ordered ONE (00:11)
--- NOTE | 2019-01-31 00:38 | REPVR ---
PROCEDURE INFORMATION: Exam: CT Angiography Chest With Contrast Exam date and time: 01/31/2019 12:17 AM Clinical history: 48 years old, female; Chest pain TECHNIQUE: Imaging protocol: Computed tomographic angiography of the chest with intravenous contrast. 3D rendering: MIP reconstructed images were created and reviewed. Radiation optimization: All CT scans at this facility use at least one of these dose optimization techniques: automated exposure control; mA and/or kV adjustment per patient size (includes targeted exams where dose is matched to clinical indication); or iterative reconstruction. Contrast material: ISOVUE 370; Contrast volume: 75 ml; Contrast route: IV; COMPARISON: CT ANGIO CHEST 07/05/2012 1:55 AM FINDINGS: Pulmonary arteries: No focal pulmonary artery filling defect to suggest acute pulmonary embolus. Aorta: No thoracic aortic aneurysm or dissection. Lungs: No suspicious lung mass or air space process. No central endobronchial lesion. Pleural space: No pleural effusion or pneumothorax. Heart: No cardiac enlargement or pericardial effusion. Gallbladder and bile ducts: Gallbladder is surgically absent. Lymph nodes: No enlarged mediastinal lymph nodes. Bones/joints: Bony structures show no acute fracture or destructive process. Soft tissues: Unremarkable. IMPRESSION: 1. No evidence of acute pulmonary embolus. 2. No other acute or concerning focal intrathoracic abnormality. Electronically signed by: Oj Mack On 01/31/2019 00:37:34 AM
[2019-01-31 04:23] LABS: CK-MB VALUE MASS 1.6 NG/ML (<3.6); CPK CREATINE PHOSPHOKINASE 153 U/L (26-192); MB/CK RELATIVE INDEX 1.05 (< OR =4); TROPONIN I < 0.02 NG/ML (< 0.10)
[2019-01-31 05:00] VITALS: BP 143/92
--- NOTE | 2019-01-31 08:33 | REP ---
Portable chest x-ray: Single view. History: Chest pain. Comparison chest x-ray: December 29, 2018. Findings: EKG monitoring electrodes overlie the chest. Lungs are well inflated and clear. The pleural angles are sharp. Heart size is normal. Impression: No active disease. Electronically Signed by John Tsai MD 01/31/2019 08:24 A
--- NOTE | 2019-01-31 17:59 | ECGEPIP ---
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
--- NOTE | 2019-01-31 18:02 | ECGEPIP ---
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
== END 2019-01-31 05:15 | disposition home or self-care (01) ==
LOC: M ED 21:41
DX: R07.89 Other chest pain (principal); R05 Cough; I10 Essential (primary) hypertension; Z88.0 Allergy status to penicillin; Z91.011 Allergy to milk products; F17.210 Nicotine dependence, cigarettes, uncomplicated
CPT/HCPCS: 36415; 71045; 71275; 80048; 80076; 82550; 82553; 83690; 85025; 93005; 93041; 94760; 99285; Q9967

== ENCOUNTER 2019-03-12 20:48 | Emergency (ER) | payer OTHER ==
[~2019-03-12] VITALS: Ht 170.2 cm; Wt 113.6 kg
[2019-03-12 23:45] VITALS: BP 144/82
--- NOTE | 2019-03-13 07:54 | REP ---
Clinical: Trauma. Technique: AP, lateral, bilateral oblique views left foot . Findings: The osseous structures and joint spaces are intact and normal. There is no evidence for acute fracture or dislocation. Surrounding soft tissues are unremarkable. No subcutaneous emphysema or radiodense foreign body. Impression: Age-appropriate left foot series . No acute fracture or dislocation. Electronically Signed by Natalio Hernandez MD 03/13/2019 07:45 A
== END 2019-03-12 23:49 | disposition home or self-care (01) ==
LOC: M ED 20:48
DX: S96.912A Strain of unspecified muscle and tendon at ankle and foot level, left foot, initial encounter (principal); X50.9XXA Other and unspecified overexertion or strenuous movements or postures, initial encounter; Y92.018 Other place in single-family (private) house as the place of occurrence of the external cause; I10 Essential (primary) hypertension; K21.9 Gastro-esophageal reflux disease without esophagitis; Z79.82 Long term (current) use of aspirin; Z88.0 Allergy status to penicillin; Z91.011 Allergy to milk products; F17.210 Nicotine dependence, cigarettes, uncomplicated

== ENCOUNTER 2019-03-20 14:54 | Emergency (ER) | payer OTHER ==
[~2019-03-20] VITALS: Ht 170.2 cm; Wt 113.6 kg
[2019-03-20] MEDS ORDERED: ASPI81CH33 PO (15:28)
[2019-03-20] MEDS ORDERED: PERCOCET 5MG/325MG TAB PO ONE (16:15)
--- NOTE | 2019-03-20 16:33 | REP ---
Duplex extremity venous ultrasound: Left lower extremity. History: Pain in the left lower extremity. Rule out DVT raúl Findings: The deep veins are anechoic and fully compressible from the groin to the popliteal fossa in the left lower extremity. Color flow imaging is homogeneous. Spectral Doppler interrogation demonstrates intact respiratory variation in flow and normal manual augmentation of flow. There is no evidence of deep vein thrombosis. Impression: Negative left lower extremity duplex venous ultrasound. No evidence of deep vein thrombosis. Electronically Signed by John Tsai MD 03/20/2019 04:24 P
[2019-03-20 17:00] VITALS: BP 154/89
[2019-03-20] MEDS ORDERED: NORCO 5/325MG TABLET (BULK FOR ED) PO ONE (17:00)
--- NOTE | 2019-03-20 21:19 | ECGEPIP ---
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
== END 2019-03-20 17:13 | disposition home or self-care (01) ==
LOC: M ED 14:54
DX: M79.662 Pain in left lower leg (principal); I10 Essential (primary) hypertension; K21.9 Gastro-esophageal reflux disease without esophagitis; Z79.82 Long term (current) use of aspirin; Z88.0 Allergy status to penicillin; Z91.011 Allergy to milk products; F17.210 Nicotine dependence, cigarettes, uncomplicated

== ENCOUNTER → 2019-05-02 | Outpatient (CLI) | payer OTHER ==
[~2019-05-02] MED LIST changes: +ASPI81CH33 PO
--- NOTE | 2019-05-02 12:15 | REPMRS ---
Patient History The patient states she has not had a clinical breast exam in over a year. No known family history of cancer. Digital Woman Screen Mammo: May 02, 2019 - Exam #: [id number] Bilateral CC and MLO view(s) were taken. Technologist: Caitlyn Robles, Technologist No prior studies available for comparison. FINDINGS: The breast tissue is almost entirely fat. There is no evidence of dominant mass, architectural distortion, or grouped microcalcification typical of malignancy. 3-D tomosynthesis shows no additional findings. Assessment: BI-RADS/ACR category 1 mammogram. Negative Mammogram. Recommendation Routine screening mammogram of both breasts in 1 year (for women over age 40). This patient's Lifetime Breast Cancer RIsk is estimated at 8.8 %. This mammogram was interpreted with the aid of an FDA-approved computer-aided dectection system. Electronically Signed By: Issac Tsai MD 05/02/19 [id number]
== END ==
LOC: M WHC 10:33
PROVIDERS: ATTEND Family Medicine
DX: Z12.31 Encounter for screening mammogram for malignant neoplasm of breast (principal)

== ENCOUNTER 2019-05-21 00:35 | Emergency (ER) | payer OTHER ==
[~2019-05-21] VITALS: Ht 170.2 cm; Wt 120.2 kg
[2019-05-21] MEDS ORDERED: VITA200028 PO (00:40)
[2019-05-21] MEDS ORDERED: diphenhydrAMINE 50 MG CAP PO ONE (03:15)
[2019-05-21 03:18] VITALS: BP 138/66
== END 2019-05-21 03:20 | disposition home or self-care (01) ==
LOC: M ED 00:35
DX: L50.9 Urticaria, unspecified (principal); T78.40XA Allergy, unspecified, initial encounter; X58.XXXA Exposure to other specified factors, initial encounter; Y92.89 Other specified places as the place of occurrence of the external cause

== ENCOUNTER 2019-05-28 01:24 | Emergency (ER) | payer OTHER ==
[~2019-05-28] VITALS: Ht 170.2 cm; Wt 117.4 kg
[~2019-05-28 01:24] MED LIST changes: +VITA200028 PO
[2019-05-28] MEDS ORDERED: PRED20TA PO (02:52)
[2019-05-28] MEDS ORDERED: predniSONE 20 MG TAB PO ONE (03:00)
[2019-05-28 03:25] VITALS: BP 142/86
== END 2019-05-28 03:24 | disposition home or self-care (01) ==
LOC: M ED 01:24
DX: L50.9 Urticaria, unspecified (principal); Z88.0 Allergy status to penicillin; Z91.018 Allergy to other foods

== ENCOUNTER → 2019-06-30 | Outpatient (CLI) | payer OTHER ==
[2019-06-30 17:38] LABS: BASO % 0.2 % (0.0-1.0); EOS # 0.1 10^3/uL (0.0-0.5); EOS % 0.9 % (0.0-3.0); HEMOGLOBIN 15.8 g/dl (12.0-15.5); LYMPH # 2.8 10^3/uL (1.5-5.0); LYMPH % 27.2 % (24.0-44.0); MEAN CORPUSCULAR HEMOGLOBIN 31.5 pg (27.0-33.0); MEAN CORPUSCULAR HGB CONC 33.6 g/dl (32.0-36.5); MEAN CORPUSCULAR VOLUME 93.8 fl (80.0-96.0); MONO # 0.8 10^3/uL (0.0-0.8); MONO % 7.8 % (0.0-5.0); NEUTROPHILS # 6.5 10^3/uL (1.5-8.5); NEUTROPHILS % 63.6 % (36.0-66.0); PLATELET COUNT, AUTOMATED 235 10^3/uL (150-450); RED BLOOD COUNT 5.01 10^6/uL (4.00-5.40); WHITE BLOOD COUNT 10.2 10^3/uL (4.0-10.0)
[2019-06-30 18:10] LABS: RHEUMATOID FACTOR QUANT < 10.0 IU/ML (<15.0); THYROXINE (T4) 9.7 UG/DL (4.5-12.0)
[2019-06-30 18:50] LABS: ERYTHROCYTE SEDIMENTATION RATE 9 mm/hr (0-20)
[2019-07-01 08:15] LABS: THYROGLOBULIN ANTIBODY 20.2 U/ML (<60.0); THYROID PEROXIDASE ANTIBODY < 28.0 U/ML (<60.0)
== END ==
LOC: M PLALAB 15:29
PROVIDERS: ATTEND Allergy & Immunology Allergy
DX: L50.1 Idiopathic urticaria (principal)

== ENCOUNTER 2021-01-11 16:57 | Emergency (ER) | payer OTHER ==
[~2021-01-11] VITALS: Ht 170.2 cm; Wt 122.0 kg
[~2021-01-11 16:57] MED LIST changes: +EMTR1TAB16 PO; -LISI-538 PO; -LISI-542 PO; +LISI-898 PO; +LISI10TA22 PO; -LISI10TA4 PO; +LISI20TA33 PO; -TRUVTAB PO
--- OUTSIDE RECORDS SUMMARY | 2021-01-11 17:06 | CCD ---
Author Author [facility] Organization [facility] Address Unknown Phone Unavailable Support Name Relationship Address Phone SELF EMPLOYED Next Of Kin [address] [place] [address] [place] [address] NONI SABA Next Of Kin [address] [place] [address] UE Next Of Kin Unknown Unavailable UNEMPLOYED Next Of Kin [address] [place] [address] Smaina SABA Next Of Kin [address] [place] [address] BLADIMIR NIELSON Next Of Kin [address] [place] [address] Juan Saba ECON [address] [place] [phone] Noni Saba ECON [address] [place] [address] [phone] Re-disclosure Warning The records that you are about to access may contain information from federally-assisted alcohol or drug abuse programs. If such information is present, then the following federally mandated warning applies: This information has been disclosed to you from records protected by federal confidentiality rules (42 CFR part 2). The federal rules prohibit you from making any further disclosure of this information unless further disclosure is expressly permitted by the written consent of the person to whom it pertains or as otherwise permitted by 42 CFR part 2. A general authorization for the release of medical or other information is NOT sufficient for this purpose. The Federal rules restrict any use of the information to criminally investigate or prosecute any alcohol or drug abuse patient.The records that you are about to access may contain highly sensitive health information, the redisclosure of which is protected by Article 27-F of the [facility] Public Health law. If you continue you may have access to information: Regarding HIV / AIDS; Provided by facilities licensed or operated by the [facility] Office of Mental Health; or Provided by the [facility] Office for People With Developmental Disabilities. If such information is present, then the following [facility] mandated warning applies: This information has been disclosed to you from confidential records which are protected by state law. State law prohibits you from making any further disclosure of this information without the specific written consent of the person to whom it pertains, or as otherwise permitted by law. Any unauthorized further disclosure in violation of state law may result in a fine or fci sentence or both. A general authorization for the release of medical or other information is NOT sufficient authorization for further disc losure. Family History Family Member Name Family Member Gender Family Member Status Date o f Status Description Data Source(s) Unknown Unknown Problem [facility] ([facility] Unknown Male Problem [facility] ([facility], ) () Immunizations Vaccine Date Status Description Data Source(s) COVID-19 VACCINE Jj 11/27/2020 12:00:00 AM EDT completed [employer] Vaccine Series Complete: YESThis Data wa s Submitted to [facility]. Medications Medication Brand Name Start Date Product Form Dose Route Admi nistrative Instructions Pharmacy Instructions Status Indications Reaction Description Data Source(s) 300 mg 08/21/2020 12:00:00 AM EDT capsule 20 TAKE ONE CAPSULE BY MOUTH EVERY 12 HOURS FOR 10 DAYS TAKE ONE CAPSULE BY MOUTH EVERY 12 HOURS FOR 10 DAYS S OLD: 08/22/2020 [facility] 300 mg 06/12/2020 12:00:00 AM EDT capsule 14 TAKE ONE CAPSULE BY MOUTH EVERY 12 HOURS FOR 7 DAYS TAKE ONE CAPSULE BY MOUTH EVERY 12 HOURS FOR 7 DAYS SO LD: 06/12/2020 [facility] Insurance Providers Payer name Policy type / Coverage type Policy ID Covered constitution party ID Covered constitution party's relationship to grajeda Policy Grajeda Plan Information [facility] [id number] SP [id number] [facility] [id number] SP [id number] [facility] O [id number] S [id number] ANSI-Commercial [id number] [facility]-Medicaid [id number] [facility] Maintenance Organization ([facility]) [id number] Self [id number] [facility] [id number] SP [id number] ANSI-Commercial [id number] [facility]-Medicaid [id number] [facility] [id number] SP [id number] [facility] [id number] SP [id number] [facility] [id number] SP [id number] [employer] COMPENSATION [id number] SP [id number] [facility] [id number] SP [id number] [facility] Maintenance [facility] ([facility]) [id number] Self [id number] [facility] Maintenance [facility] ([facility]) [id number] Self [id number] [facility] [id number] SP [id number] [facility] [id number] SP [id number] [facility] [id number] SP [id number] [facility] [id number] SP [id number] MEDICAID [id number] SP [id number] Problems, Conditions, and Diagnoses No Information Surgeries/Procedures No Information Results No Information Social History No Information
[2021-01-11 17:14] VITALS: BP 185/84
--- NOTE | 2021-01-11 17:52 | REP ---
INDICATION: injury, fall, decrease ROM, include wrist. COMPARISON: None. TECHNIQUE: Two views of the right forearm were obtained. FINDINGS: There is a radial head fracture demonstrated. There is a large elbow joint effusion. IMPRESSION: Radial head fracture with an elbow joint effusion. <Electronically signed by Maurilio Berrios > 01/11/21 [id number]
--- NOTE | 2021-01-11 17:52 | REP ---
INDICATION: injury, fall, decrease ROM. COMPARISON: None. TECHNIQUE: Four views of the left elbow were obtained. FINDINGS: There is a minimally depressed radial head fracture. There is a large elbow joint effusion. IMPRESSION: Radial head fracture with an elbow joint effusion. <Electronically signed by Maurilio Berrios > 01/11/21 1402
[2021-01-11] MEDS ORDERED: HYDR-3713 PO (18:51)
--- OUTSIDE RECORDS SUMMARY | 2021-01-11 19:23 | CCD ---
Author Author [facility] Organization [facility] Address Unknown Phone Unavailable Support Name Relationship Address Phone SELF EMPLOYED Next Of Kin [address] [place] [address] [place] [address] NONI SABA Next Of Kin [address] [place] [address] UE Next Of Kin Unknown Unavailable UNEMPLOYED Next Of Kin [address] [place] [address] Samina SABA Next Of Kin [address] [place] [address] BLADIMIR NIELSON Next Of Kin [address] [place] [address] Juan Saba ECON [address] [place] [address] [phone] Noni Saba ECON [address] [place] [address] [phone] Re-disclosure Warning The records that you are [...] is protected by Article 27-F of the [place] [facility] Public Health law. If you continue you may have access to information: Regarding HIV / AIDS; Provided by facilities licensed or operated by the [facility] Office of Mental Health; or Provided by the [facility] Office for People With Developmental Disabilities. If such information is present, then the following [facility] mandated warning applies: This information has been [...] law may result in a fine or alf sentence or both. A general authorization for the release of medical or other information is NOT sufficient authorization for further disc losure. Family History Family Member Name Family Member Gender Family Member Status Date o f Status Description Data Source(s) Unknown Unknown Problem MEDENT ([facility]) Unknown Male Problem MEDENT ([facility] ) () Immunizations Vaccine Date Status Description Data Source(s) COVID-19 VACCINE Jj 11/27/2020 12:00:00 AM EDT completed SkysheetSIIS Vaccine Series Complete: YESThis Data wa s Submitted to [facility] Via [employer]. Medications Medication Brand Name Start Date Product [...] type / Coverage type Policy ID Covered green party ID Covered green party's relationship to grajeda Policy Grajeda Plan Information [facility]AN [facility] [id number] SP [id number] [facility] COMM[facility]AN [facility] [id number] SP [id number] [facility] O [id number] S [id number] ANSI-Commercial [id number] [facility] [id number] [facility] Health Maintenance Organization ([facility]) [id number] Self [id number] [facility] [id number] SP [id number] ANSI-Commercial [id number] [facility]-Medicaid [id number] [facility] [id number] SP [id number] [facility] [id number] SP [id number] [facility] [id number] SP [id number] OTHER WORKERS COMPENSATION [id number] SP [id number] [facility] [id number] SP [id number] [facility] Maintenance [facility] ([facility]) [id number] Self [id number] [facility] Maintenance [facility] ([facility]) [id number] Self [id number] [facility] [id number] SP [id number] [facility] [id number] SP [id number] [facility] [id number] SP [id number] [facility] [id number] SP [id number] MEDICAID [id number] SP [id number] Problems, Conditions, and Diagnoses No Information Surgeries/Procedures No Information Results No Information Social History No Information
== END 2021-01-11 19:34 | disposition home or self-care (01) ==
LOC: M ED 16:57
DX: S52.122A Displaced fracture of head of left radius, initial encounter for closed fracture (principal); W18.39XA Other fall on same level, initial encounter; Y92.018 Other place in single-family (private) house as the place of occurrence of the external cause; E11.9 Type 2 diabetes mellitus without complications; I10 Essential (primary) hypertension; E78.5 Hyperlipidemia, unspecified; F41.9 Anxiety disorder, unspecified; Z88.0 Allergy status to penicillin; Z91.011 Allergy to milk products

== ENCOUNTER 2021-01-15 14:02 | Emergency (ER) | payer OTHER ==
[~2021-01-15] VITALS: Ht 170.2 cm; Wt 123.4 kg
[~2021-01-15 14:02] MED LIST changes: +HYDR-3713 PO
--- OUTSIDE RECORDS SUMMARY | 2021-01-15 14:07 | CCD ---
Author Author [facility] Organization [facility] Address Unknown Phone Unavailable Support Name Relationship Address Phone SELF EMPLOYED Next Of Kin [address] [place] [address] [place] [address] NONI SABA Next Of Kin [address] [place] [address] UE Next Of Kin Unknown Unavailable UNEMPLOYED Next Of Kin [address] [place] [address] Samina SABA Next Of Kin [address] [place] [address] BLADIMIR NIELSON Next Of Kin [address] [place] [address] Samina SABA ECON [address] [place] [address] [phone] Noni Saba ECON [address] [facility] [place] [address] [phone] Re-disclosure Warning The records that you are [...] is protected by Article 27-F of the [facility] Public Health law. If you continue you may have access to information: Regarding HIV / AIDS; Provided by facilities licensed or operated by the [facility] Office of Mental Health; or Provided by the [facility] Office for People With Developmental Disabilities. If such information is present, then the following [facility] mandated warning applies: This information has been [...] law may result in a fine or detention sentence or both. A general authorization for the release of medical or other information is NOT sufficient authorization for further disc losure. Family History Family Member Name Family Member Gender Family Member Status Date o f Status Description Data Source(s) Unknown Unknown Problem MEDENT ([facility]) Unknown Male Problem MEDENT ([facility] ) () Immunizations Vaccine Date Status Description Data Source(s) COVID-19 VACCINE Jj 11/27/2020 12:00:00 AM EDT completed AgendiaSIIS Vaccine Series Complete: YESThis Data wa s Submitted to [facility] Via [employer]. Medications Medication Brand Name Start Date Product Form Dose Route Admi nistrative Instructions Pharmacy Instructions Status Indications Reaction Description Data Source(s) Acetaminophen 325 MG / Hydrocodone Bitartrate 5 MG Ora l Tablet 5-325 mg HYDROCODONE/ACETAMINOPHEN 01/12/2021 12:00:00 AM EDT tablet 10 TAKE ONE TABLET BY MOUTH EVERY 6 HOURS NEEDED FOR PAIN MAXIMUM DAILY DOSE = 4 TAKE ONE TABLET BY MOUTH EVERY 6 HOURS NEEDED FOR PAIN MAXIMUM DAILY DOSE = 4 SOLD: 01/12/2021 [facility] 300 mg 08/21/2020 12:00:00 AM EDT capsule [...] relationship to grajeda Policy Grajeda Plan Information [employer] COMMUN[employer] PLAN MCDO [id number] SP [id number] UN COMMUNITY PLAN MCDO [id number] SP [id number] [facility]) O [id number] ANSI-Commercial [id number] ANSI-Medicaid [id number] [facility] Organization ([facility]) [id number] Self [id number] [facility] [id number] SP [id number] ANSI-Commercial [id number] ANSI-Medicaid [id number] UN COMMUNITY PLAN [facility] [id number] SP [id number] [facility] [id number] SP [id number] [facility] [id number] SP [id number] OTHER WORKERS COMPENSATION [id number] SP [id number] [facility] [id number] SP [id number] [facility] Health Maintenance Organization (O) [id number] Self [id number] [facility] Health Maintenance Organization (O) [id number] Self [id number] [facility] [id number] [facility] [id number] [facility] [id number] [facility] [id number] MEDICAID [id number] Problems, Conditions, and Diagnoses No Information Surgeries/Procedures No Information Results No Information Social History No Information
--- OUTSIDE RECORDS SUMMARY | 2021-01-15 14:47 | CCD ---
Author Author [facility] Organization [facility] Address Unknown Phone Unavailable Support Name Relationship Address Phone SELF EMPLOYED Next Of Kin [address] [place] [address] [place] [address] NONI SABA Next Of Kin [address] [place] [address] UE Next Of Kin Unknown Unavailable UNEMPLOYED Next Of Kin [address] [place] [address] Samina SABA Next Of Kin [address] [place] [address] BLADIMIR NIELSON Next Of Kin [address] [place] [address] Samina SABA ECON [address] [place] [address] [phone] Noni Saba ECON [address] [place] [address] [phone] Re-disclosure Warning The records that you are [...] is protected by Article 27-F of the [facility] Public Health law. If you continue you may have access to information: Regarding HIV / AIDS; Provided by facilities licensed or operated by the [facility] Office of Mental Health; or Provided by the [facility] Office for People With Developmental Disabilities. If such information is present, then the following [facility] mandated warning applies: This information has [...] law may result in a fine or half-way sentence or both. A general authorization for the release of medical or other information is NOT sufficient authorization for further disc losure. Family History Family Member Name Family Member Gender Family Member Status Date o f Status Description Data Source(s) Unknown Unknown Problem MEDENT ([facility]) Unknown Male Problem MEDENT ([facility] ) () Immunizations Vaccine Date Status Description Data Source(s) COVID-19 VACCINE Jj 11/27/2020 12:00:00 AM EDT completed StykyIS Vaccine Series Complete: YESThis Data wa s Submitted to [facility] Via [employer]. Medications Medication Brand Name Start Date Product [...] type / Coverage type Policy ID Covered libertarian ID Covered libertarian's relationship to grajeda Policy Grajeda Plan Information UN COMMUNITY PLAN MCDO [id number] SP [id number] UN COMMUNITY PLAN MCDO [id number] SP [id number] [facility]) [id number] ANSI-Commercial [id number] ANSI-Medicaid [id number] [facility] Health Maintenance Organization ([facility]) [id number] Self [id number] [facility] [id number] SP [id number] ANSI-Commercial [id number] ANSI-Medicaid [id number] UN COMMUNITY PLAN MCDO [id number] SP [id number] [facility] [id number] SP [id number] [facility] [id number] SP [id number] OTHER WORKERS COMPENSATION [id number] SP [id number] [facility] [id number] SP [id number] [facility] Health Maintenance Organization (O) [id number] Self [id number] [facility] Health Maintenance Organization (O) [id number] [id number] Self [id number] [facility] PLAN [facility] [place] [place] [id number] [facility] PLAN [facility] [place] [id number] [facility] PL[facility] [place] [id number] [facility] [id number] MEDICAID [id number] Problems, Conditions, and Diagnoses No Information Surgeries/Procedures No Information Results No Information Social History No Information
[2021-01-15 19:58] VITALS: BP 138/95
== END 2021-01-15 19:59 | disposition home or self-care (01) ==
LOC: M ED 14:02
DX: R22.32 Localized swelling, mass and lump, left upper limb (principal); S52.122D Displaced fracture of head of left radius, subsequent encounter for closed fracture with routine healing; X58.XXXD Exposure to other specified factors, subsequent encounter; Y92.89 Other specified places as the place of occurrence of the external cause; Z88.0 Allergy status to penicillin; Z91.011 Allergy to milk products

== ENCOUNTER → 2021-01-24 | Outpatient (CLI) | payer OTHER ==
--- NOTE | 2021-01-24 12:05 | REP ---
INDICATION: RADIAL HEAD FX. COMPARISON: 02/11/2021 TECHNIQUE: Three views FINDINGS: The previously described radial head fracture is less apparent consistent with healing. The joint effusion seen previously has decreased. IMPRESSION: As above. <Electronically signed by Milad Lester > 01/24/21 1208
== END ==
LOC: M SOG 10:40
PROVIDERS: ATTEND Orthopaedic Surgery
DX: S52.125A Nondisplaced fracture of head of left radius, initial encounter for closed fracture (principal); Y92.9 Unspecified place or not applicable; Y93.9 Activity, unspecified; Y99.9 Unspecified external cause status

== ENCOUNTER → 2021-07-14 | Outpatient (REF) | payer OTHER ==
[~2021-07-14] MED LIST changes: -LISI-898 PO; +LISI5TAB11 PO
== END ==
LOC: M LAB REF 10:34
PROVIDERS: ATTEND Physician Assistant Medical
DX: R50.9 Fever, unspecified (principal); R53.83 Other fatigue

== ENCOUNTER 2021-07-29 15:57 | Emergency (ER) | payer OTHER ==
[~2021-07-29] VITALS: Ht 170.2 cm; Wt 126.2 kg
[2021-07-29 22:19] LABS: BASO % 0.3 % (0.0-1.0); EOS # 0.2 10^3/uL (0.0-0.5); EOS % 1.9 % (0.0-3.0); HEMATOCRIT 45.6 % (36.0-47.0); HEMOGLOBIN 15.2 g/dl (12.0-15.5); LYMPH # 3.2 10^3/uL (1.5-5.0); LYMPH % 26.9 % (24.0-44.0); MEAN CORPUSCULAR HEMOGLOBIN 31.2 pg (27.0-33.0); MEAN CORPUSCULAR HGB CONC 33.3 g/dl (32.0-36.5); MEAN CORPUSCULAR VOLUME 93.6 fl (80.0-96.0); MONO # 0.8 10^3/uL (0.0-0.8); MONO % 6.2 % (2.0-8.0); NEUTROPHILS # 7.8 10^3/uL (1.5-8.5); NEUTROPHILS % 64.3 % (36.0-66.0); PLATELET COUNT, AUTOMATED 229 10^3/uL (150-450); RED BLOOD COUNT 4.87 10^6/uL (4.00-5.40); WHITE BLOOD COUNT 12.1 10^3/uL (4.0-10.0)
[2021-07-29 22:23] LABS: AMORPHOUS SEDIMENT SMALL (NEGATIVE); APPEARANCE, URINE CLOUDY (CLEAR); BACTERIA, URINE AUTO 2+ (NEGATIVE); BILIRUBIN, URINE AUTO NEGATIVE (NEGATIVE); BLOOD, URINE BLOOD 1+ (NEGATIVE); COLOR, URINE YELLOW (YELLOW); GLUCOSE, URINE (UA) AUTO NEGATIVE (NEGATIVE); KETONE, URINE AUTO TRACE mg/dL (NEGATIVE); LEUKOCYTE ESTERASE, URINE AUTO 2+ (NEGATIVE); MUCUS, URINE SMALL (NEGATIVE); NITRITE, URINE AUTO NEGATIVE (NEGATIVE); PROTEIN, URINE AUTO NEGATIVE (NEGATIVE); RBC, URINE AUTO 8 /HPF (0-3); SQUAMOUS EPITHELIAL CELL UR AU 7 /HPF (0-6); WBC, URINE AUTO 18 /HPF (0-3)
[2021-07-29 22:51] LABS: BLOOD UREA NITROGEN 12 MG/DL (7-18); CALCIUM LEVEL 8.9 MG/DL (8.5-10.1); CARBON DIOXIDE LEVEL 29 MEQ/L (21-32); CHLORIDE LEVEL 109 MEQ/L (98-107); CREATININE FOR GFR 0.69 MG/DL (0.55-1.30); GLOMERULAR FILTRATION RATE > 60.0 (>58); GLUCOSE, FASTING 122 MG/DL (70-100); NT-PRO BNP 60 PG/ML (<125); POTASSIUM SERUM 3.8 MEQ/L (3.5-5.1); SODIUM LEVEL 141 MEQ/L (136-145)
[2021-07-29] MEDS ORDERED: CHLORTHALIDONE 12.5MG PER 1/2 TABLET PO ONE (23:20)
[2021-07-29] MEDS ORDERED: SPIRONOLACTONE 12.5MG PER 1/2 TABLET PO SCH (23:20)
[2021-07-29] MEDS ORDERED: LISI10TA22 PO (23:23)
[2021-07-29] MEDS ORDERED: SPIR-10 PO (23:23)
[2021-07-29] MEDS ORDERED: CHLO125TA PO (23:23)
[2021-07-30 00:31] VITALS: BP 151/74
== END 2021-07-30 00:32 | disposition home or self-care (01) ==
LOC: M ED 15:57
DX: R60.9 Edema, unspecified (principal); I10 Essential (primary) hypertension; Z88.0 Allergy status to penicillin; F17.210 Nicotine dependence, cigarettes, uncomplicated

== ENCOUNTER → 2021-08-19 | Outpatient (CLI) | payer OTHER ==
[~2021-08-19] MED LIST changes: +CHLO125TA PO; +SPIR-10 PO
[2021-08-19 11:55] LABS: ALBUMIN 3.5 GM/DL (3.2-5.2); ALT/SGPT 31 U/L (12-78); BILIRUBIN,TOTAL 0.5 MG/DL (0.2-1.0); BLOOD UREA NITROGEN 15 MG/DL (7-18); CALCIUM LEVEL 8.6 MG/DL (8.5-10.1); CARBON DIOXIDE LEVEL 31 MEQ/L (21-32); CHLORIDE LEVEL 102 MEQ/L (98-107); CHOLESTEROL LEVEL 145 MG/DL (<200); CHOLESTEROL RISK RATIO 2.959 (<5); CREATININE FOR GFR 0.79 MG/DL (0.55-1.30); GLOMERULAR FILTRATION RATE > 60.0 (>58); GLUCOSE, FASTING 127 MG/DL (70-100); HDL CHOLESTEROL 49 MG/DL (>40); LDL CHOLESTEROL 80 MG/DL (<100); NON-HDL-C 96 MG/DL; POTASSIUM SERUM 3.8 MEQ/L (3.5-5.1); SODIUM LEVEL 137 MEQ/L (136-145); TOTAL PROTEIN 7.5 GM/DL (6.4-8.2); TRIGLYCERIDES LEVEL 80 MG/DL (<150)
[2021-08-19 11:59] LABS: TOTAL 25(OH) VITAMIN D 12.5 NG/ML (30.0-100.0)
[2021-08-19 12:32] LABS: HEMOGLOBIN A1c 6.8 %
== END ==
LOC: M PLALAB 07:59
PROVIDERS: ATTEND Family Medicine
DX: E78.2 Mixed hyperlipidemia (principal); R73.01 Impaired fasting glucose; E55.9 Vitamin D deficiency, unspecified; I10 Essential (primary) hypertension

== ENCOUNTER → 2021-12-27 | Outpatient (CLI) | payer OTHER ==
[2021-12-27 11:49] LABS: BASO # 0.1 10^3/uL (0.0-0.2); BASO % 0.5 % (0.0-1.0); EOS # 0.3 10^3/uL (0.0-0.5); EOS % 2.7 % (0.0-3.0); HEMATOCRIT 47.1 % (36.0-47.0); HEMOGLOBIN 15.3 g/dl (12.0-15.5); LYMPH # 2.8 10^3/uL (1.5-5.0); LYMPH % 26.9 % (24.0-44.0); MEAN CORPUSCULAR HEMOGLOBIN 30.8 pg (27.0-33.0); MEAN CORPUSCULAR HGB CONC 32.5 g/dl (32.0-36.5); MONO # 0.8 10^3/uL (0.0-0.8); MONO % 7.6 % (2.0-8.0); NEUTROPHILS # 6.5 10^3/uL (1.5-8.5); NEUTROPHILS % 61.9 % (36.0-66.0); PLATELET COUNT, AUTOMATED 256 10^3/uL (150-450); RED BLOOD COUNT 4.96 10^6/uL (4.00-5.40); WHITE BLOOD COUNT 10.6 10^3/uL (4.0-10.0)
[2021-12-27 12:28] LABS: ALBUMIN 3.5 GM/DL (3.2-5.2); ALT/SGPT 22 U/L (12-78); BILIRUBIN,TOTAL 0.3 MG/DL (0.2-1.0); BLOOD UREA NITROGEN 14 MG/DL (7-18); CALCIUM LEVEL 9.2 MG/DL (8.5-10.1); CARBON DIOXIDE LEVEL 31 MEQ/L (21-32); CHLORIDE LEVEL 102 MEQ/L (98-107); CHOLESTEROL LEVEL 182 MG/DL (<200); CREATININE FOR GFR 0.69 MG/DL (0.55-1.30); GLOMERULAR FILTRATION RATE > 60.0 (>58); GLUCOSE, FASTING 120 MG/DL (70-100); HDL CHOLESTEROL 52 MG/DL (>40); LDL CHOLESTEROL 103 MG/DL (<100); NON-HDL-C 130 MG/DL; SODIUM LEVEL 135 MEQ/L (136-145); TOTAL PROTEIN 7.4 GM/DL (6.4-8.2); TRIGLYCERIDES LEVEL 133 MG/DL (<150)
[2021-12-27 12:32] LABS: CREATININE, URINE 97.6 MG/DL; MALB URINE SIEMENS 6.1 MG/L; MAU/CREAT RATIO 6.2 MCG/MG (0.0-30.0)
[2021-12-27 13:05] LABS: TOTAL 25(OH) VITAMIN D 27.8 NG/ML (30.0-100.0)
[2021-12-27 14:15] LABS: HEMOGLOBIN A1c 6.8 %
== END ==
LOC: M PLALAB 08:19
PROVIDERS: ATTEND Physician Assistant
DX: E11.9 Type 2 diabetes mellitus without complications (principal)

== ENCOUNTER 2022-01-10 17:46 | Emergency (ER) | payer OTHER ==
[~2022-01-10] VITALS: Ht 170.2 cm; Wt 119.8 kg
[2022-01-10] MEDS ORDERED: DOXYCYCLINE HYCLATE 100MG TABLET PO ONE (19:40)
[2022-01-10 20:12] LABS: BASO # 0.1 10^3/uL (0.0-0.2); BASO % 0.4 % (0.0-1.0); EOS # 0.3 10^3/uL (0.0-0.5); EOS % 2.4 % (0.0-3.0); HEMATOCRIT 43.1 % (36.0-47.0); HEMOGLOBIN 14.7 g/dl (12.0-15.5); LYMPH # 2.7 10^3/uL (1.5-5.0); LYMPH % 19.6 % (24.0-44.0); MEAN CORPUSCULAR HEMOGLOBIN 31.1 pg (27.0-33.0); MEAN CORPUSCULAR HGB CONC 34.1 g/dl (32.0-36.5); MEAN CORPUSCULAR VOLUME 91.3 fl (80.0-96.0); MONO # 0.8 10^3/uL (0.0-0.8); MONO % 5.5 % (2.0-8.0); NEUTROPHILS # 9.9 10^3/uL (1.5-8.5); NEUTROPHILS % 71.6 % (36.0-66.0); PLATELET COUNT, AUTOMATED 234 10^3/uL (150-450); RED BLOOD COUNT 4.72 10^6/uL (4.00-5.40); WHITE BLOOD COUNT 13.8 10^3/uL (4.0-10.0)
[2022-01-10 20:40] LABS: ERYTHROCYTE SEDIMENTATION RATE 39 mm/hr (0-20)
[2022-01-10] MEDS ORDERED: DOXY-443 PO (21:06)
[2022-01-10 21:11] VITALS: BP 127/72
== END 2022-01-10 21:15 | disposition home or self-care (01) ==
LOC: M ED 17:46
DX: L03.311 Cellulitis of abdominal wall (principal); S31.109A Unspecified open wound of abdominal wall, unspecified quadrant without penetration into peritoneal cavity, initial encounter; I10 Essential (primary) hypertension; F17.200 Nicotine dependence, unspecified, uncomplicated; Z88.1 Allergy status to other antibiotic agents; Z91.011 Allergy to milk products; Z79.899 Other long term (current) drug therapy

== ENCOUNTER → 2022-03-19 | Outpatient (CLI) | payer OTHER ==
[~2022-03-19] MED LIST changes: +DOXY-443 PO
[2022-03-19 18:02] LABS: BASO # 0.1 10^3/uL (0.0-0.2); BASO % 0.5 % (0.0-1.0); EOS # 0.4 10^3/uL (0.0-0.5); HEMATOCRIT 46.1 % (36.0-47.0); HEMOGLOBIN 15.4 g/dl (12.0-15.5); LYMPH # 3.1 10^3/uL (1.5-5.0); LYMPH % 26.3 % (24.0-44.0); MEAN CORPUSCULAR HEMOGLOBIN 31.2 pg (27.0-33.0); MEAN CORPUSCULAR HGB CONC 33.4 g/dl (32.0-36.5); MEAN CORPUSCULAR VOLUME 93.3 fl (80.0-96.0); MONO # 0.6 10^3/uL (0.0-0.8); MONO % 5.2 % (2.0-8.0); NEUTROPHILS # 7.6 10^3/uL (1.5-8.5); NEUTROPHILS % 64.5 % (36.0-66.0); PLATELET COUNT, AUTOMATED 263 10^3/uL (150-450); RED BLOOD COUNT 4.94 10^6/uL (4.00-5.40); WHITE BLOOD COUNT 11.8 10^3/uL (4.0-10.0)
[2022-03-19 18:04] LABS: ALBUMIN 3.4 G/DL (3.2-5.2); ALKALINE PHOSPHATASE 109 U/L (46-116); ALT/SGPT 20 U/L (7.0-40); AST/SGOT 16 U/L (<34); BILIRUBIN,TOTAL 0.3 MG/DL (0.3-1.2); BLOOD UREA NITROGEN 15 MG/DL (9-23); CALCIUM LEVEL 9.5 MG/DL (8.5-10.1); CARBON DIOXIDE LEVEL 30 MMOL/L (20-31); CHLORIDE LEVEL 101 MMOL/L (98-107); CHOLESTEROL LEVEL 166 MG/DL (<200); CHOLESTEROL RISK RATIO 3.21 (<5); CREATININE FOR GFR 0.62 MG/DL (0.55-1.30); GLOMERULAR FILTRATION RATE > 60.0 (>58); GLUCOSE, FASTING 147 MG/DL (60-100); HDL CHOLESTEROL 51.7 MG/DL (>40); LDL CHOLESTEROL 91.7 MG/DL (<100); NON-HDL-C 114 MG/DL; POTASSIUM SERUM 4.1 MMOL/L (3.5-5.1); SODIUM LEVEL 137 MMOL/L (136-145); THYROID STIMULATING HORMONE 2.026 uIU/ML (0.55-4.78); TOTAL 25(OH) VITAMIN D 30.6 NG/ML (20.0-100.0); TOTAL PROTEIN 7.1 G/DL (5.7-8.2); TRIGLYCERIDES LEVEL 113 MG/DL (<150); VITAMIN B12 LEVEL 302 PG/ML (211-911)
[2022-03-19 18:35] LABS: HEMOGLOBIN A1c 6.5 % (4.0-6.0)
== END ==
LOC: M PLALAB 15:18
PROVIDERS: ATTEND Physician Assistant
DX: E11.9 Type 2 diabetes mellitus without complications (principal); E55.9 Vitamin D deficiency, unspecified; G25.0 Essential tremor

== ENCOUNTER 2022-07-12 00:54 | Emergency (ER) | payer OTHER ==
[~2022-07-12] VITALS: Ht 170.2 cm; Wt 112.5 kg
[2022-07-12 03:28] LABS: BASO # 0.1 10^3/uL (0.0-0.2); BASO % 0.5 % (0.0-1.0); EOS # 0.4 10^3/uL (0.0-0.5); EOS % 3.1 % (0.0-3.0); HEMATOCRIT 44.8 % (36.0-47.0); HEMOGLOBIN 15.4 g/dl (12.0-15.5); LYMPH # 3.9 10^3/uL (1.5-5.0); LYMPH % 28.9 % (24.0-44.0); MEAN CORPUSCULAR HEMOGLOBIN 31.4 pg (27.0-33.0); MEAN CORPUSCULAR HGB CONC 34.4 g/dl (32.0-36.5); MEAN CORPUSCULAR VOLUME 91.4 fl (80.0-96.0); MONO # 0.9 10^3/uL (0.0-0.8); MONO % 6.8 % (2.0-8.0); NEUTROPHILS # 8.2 10^3/uL (1.5-8.5); NEUTROPHILS % 60.2 % (36.0-66.0); PLATELET COUNT, AUTOMATED 263 10^3/uL (150-450); WHITE BLOOD COUNT 13.6 10^3/uL (4.0-10.0)
[2022-07-12 03:50] LABS: LIPASE 36 U/L (12-53)
[2022-07-12 03:51] LABS: CK-MB VALUE MASS < 1.0 NG/ML (<3.6)
[2022-07-12 03:52] LABS: ALBUMIN 3.3 G/DL (3.2-5.2); ALKALINE PHOSPHATASE 113 U/L (46-116); ALT/SGPT 16 U/L (7.0-40); AST/SGOT 16 U/L (<34); BILIRUBIN,DIRECT < 0.1 MG/DL (<0.4); BILIRUBIN,TOTAL 0.2 MG/DL (0.3-1.2); BLOOD UREA NITROGEN 12 MG/DL (9-23); CALCIUM LEVEL 8.4 MG/DL (8.5-10.1); CARBON DIOXIDE LEVEL 28 MMOL/L (20-31); CHLORIDE LEVEL 101 MMOL/L (98-107); CREATININE FOR GFR 0.65 MG/DL (0.55-1.30); GLOMERULAR FILTRATION RATE > 60.0 (>58); GLUCOSE, FASTING 151 MG/DL (60-100); POTASSIUM SERUM 3.7 MMOL/L (3.5-5.1); SODIUM LEVEL 135 MMOL/L (136-145); TOTAL PROTEIN 6.7 G/DL (5.7-8.2)
[2022-07-12 04:01] LABS: CPK CREATINE PHOSPHOKINASE 65 U/L (34-145); MB/CK RELATIVE INDEX 1.53 (< OR =4)
[2022-07-12 04:11] LABS: HCG, SERUM QUALITATIVE NEGATIVE (NEGATIVE)
[2022-07-12 04:12] LABS: PROTHROMBIN TIME 13.4 SECONDS (12.5-14.5)
[2022-07-12] MEDS ORDERED: KETOROLAC 30 MG/ML 1ML VIAL IV ONE (04:45)
[2022-07-12] MEDS ORDERED: ISOVUE-370 76% 100ML VIAL As Ordered ONE (04:49)
[2022-07-12 06:57] VITALS: BP 133/86
== END 2022-07-12 06:58 | disposition home or self-care (01) ==
LOC: M ED 00:54
DX: R10.9 Unspecified abdominal pain (principal); I10 Essential (primary) hypertension; G25.0 Essential tremor; E83.119 Hemochromatosis, unspecified; F17.210 Nicotine dependence, cigarettes, uncomplicated; Z88.1 Allergy status to other antibiotic agents; Z91.011 Allergy to milk products; Z79.899 Other long term (current) drug therapy
CPT/HCPCS: 74177; 80048; 80076; 81001; 82550; 82553; 83690; 84703; 85025; 85610; 87186; 93005; 93041; 96374; 99284; J1885; Q9967

== ENCOUNTER → 2022-12-30 | Outpatient (CLI) | payer OTHER ==
[2022-12-30 12:28] LABS: BASO # 0.1 10^3/uL (0.0-0.2); BASO % 0.7 % (0.0-1.0); EOS # 0.4 10^3/uL (0.0-0.5); HEMATOCRIT 44.3 % (36.0-47.0); HEMOGLOBIN 15.5 g/dl (12.0-15.5); LYMPH # 2.6 10^3/uL (1.5-5.0); LYMPH % 25.9 % (24.0-44.0); MEAN CORPUSCULAR HEMOGLOBIN 31.5 pg (27.0-33.0); MONO # 0.7 10^3/uL (0.0-0.8); MONO % 7.5 % (2.0-8.0); NEUTROPHILS # 6.1 10^3/uL (1.5-8.5); NEUTROPHILS % 61.6 % (36.0-66.0); PLATELET COUNT, AUTOMATED 217 10^3/uL (150-450); RED BLOOD COUNT 4.92 10^6/uL (4.00-5.40); WHITE BLOOD COUNT 9.9 10^3/uL (4.0-10.0)
[2022-12-30 12:55] LABS: HEMOGLOBIN A1c 6.6 % (4.0-6.0)
[2022-12-30 13:07] LABS: ALBUMIN 3.3 G/DL (3.2-5.2); ALKALINE PHOSPHATASE 101 U/L (46-116); ALT/SGPT 20 U/L (7.0-40); AST/SGOT 11 U/L (<34); BILIRUBIN,TOTAL 0.6 MG/DL (0.3-1.2); BLOOD UREA NITROGEN 12 MG/DL (9-23); CALCIUM LEVEL 9.2 MG/DL (8.5-10.1); CARBON DIOXIDE LEVEL 32 MMOL/L (20-31); CHLORIDE LEVEL 97 MMOL/L (98-107); CHOLESTEROL LEVEL 161 MG/DL (<200); CHOLESTEROL RISK RATIO 3.17 (<5); FREE T4 0.94 NG/DL (0.89-1.76); GLOMERULAR FILTRATION RATE > 60.0 (>51); GLUCOSE, FASTING 193 MG/DL (60-100); HDL CHOLESTEROL 50.7 MG/DL (>40); LDL CHOLESTEROL 85.1 MG/DL (<100); NON-HDL-C 110.3 MG/DL; POTASSIUM SERUM 3.6 MMOL/L (3.5-5.1); SODIUM LEVEL 132 MMOL/L (136-145); THYROID STIMULATING HORMONE 2.442 uIU/ML (0.55-4.78); TOTAL 25(OH) VITAMIN D 36.6 NG/ML (20.0-100.0); TOTAL PROTEIN 6.7 G/DL (5.7-8.2); TRIGLYCERIDES LEVEL 126 MG/DL (<150)
== END ==
LOC: M LAB 11:24
PROVIDERS: ATTEND Physician Assistant
DX: E11.9 Type 2 diabetes mellitus without complications (principal); E55.9 Vitamin D deficiency, unspecified; G25.0 Essential tremor; E78.2 Mixed hyperlipidemia

== ENCOUNTER → 2023-01-07 | Outpatient (CLI) | payer OTHER | LOC: M RAD 08:48 | PROVIDERS: ATTEND Physician Assistant | DX: G25.0 Essential tremor (principal); Z53.9 Procedure and treatment not carried out, unspecified reason ==

== ENCOUNTER → 2023-02-02 | Outpatient (REF) | payer OTHER ==
[2023-02-03 11:25] LABS: APPEARANCE, URINE CLEAR (CLEAR); BACTERIA, URINE AUTO NEGATIVE (NEGATIVE); BILIRUBIN, URINE AUTO NEGATIVE (NEGATIVE); BLOOD, URINE BLOOD NEGATIVE (NEGATIVE); COLOR, URINE STRAW (YELLOW); GLUCOSE, URINE (UA) AUTO NEGATIVE (NEGATIVE); KETONE, URINE AUTO NEGATIVE (NEGATIVE); LEUKOCYTE ESTERASE, URINE AUTO 2+ (NEGATIVE); NITRITE, URINE AUTO NEGATIVE (NEGATIVE); PROTEIN, URINE AUTO NEGATIVE (NEGATIVE); RBC, URINE AUTO 3 /HPF (0-3); SPECIFIC GRAVITY URINE AUTO 1.004 (1.002-1.035); SQUAMOUS EPITHELIAL CELL UR AU 1 /HPF (0-6); UROBILINOGEN, URINE AUTO 0.2 mg/dL (0.0-2.0); WBC, URINE AUTO 3 /HPF (0-3)
== END ==
LOC: M SFHCPLAZ 10:07
PROVIDERS: ATTEND Nurse Practitioner Family
DX: R39.9 Unspecified symptoms and signs involving the genitourinary system (principal)

== ENCOUNTER → 2023-02-10 | Outpatient (CLI) | payer OTHER ==
[2023-02-10 20:18] LABS: ALBUMIN 3.4 G/DL (3.2-5.2); BLOOD UREA NITROGEN 18 MG/DL (9-23); CALCIUM LEVEL 9.2 MG/DL (8.5-10.1); CARBON DIOXIDE LEVEL 32 MMOL/L (20-31); CHLORIDE LEVEL 101 MMOL/L (98-107); CREATININE FOR GFR 0.71 MG/DL (0.55-1.30); GLOMERULAR FILTRATION RATE > 60.0 (>51); GLUCOSE, FASTING 130 MG/DL (60-100); POTASSIUM SERUM 4.4 MMOL/L (3.5-5.1); SODIUM LEVEL 141 MMOL/L (136-145)
== END ==
LOC: M PLALAB 14:50
PROVIDERS: ATTEND Physician Assistant
DX: E87.1 Hypo-osmolality and hyponatremia (principal)

== ENCOUNTER → 2023-02-26 | Outpatient (CLI) | payer OTHER ==
[2023-02-27 06:11] LABS: MUMPS VIRUS IgG ANTIBODY 44.4 AU/mL (Immune >10.9); RUBEOLA IgG ANTIBODY >300.0 AU/mL (Immune >16.4)
== END ==
LOC: M LAB 12:34
PROVIDERS: ATTEND Physician Assistant
DX: Z01.84 Encounter for antibody response examination (principal)

== ENCOUNTER 2023-04-10 12:45 | Emergency (ER) | payer OTHER ==
[~2023-04-10] VITALS: Ht 170.2 cm; Wt 118.2 kg
[2023-04-10 13:24] LABS: BASO % 0.4 % (0.0-1.0); EOS # 0.3 10^3/uL (0.0-0.5); EOS % 2.5 % (0.0-3.0); HEMATOCRIT 45.1 % (36.0-47.0); HEMOGLOBIN 15.1 g/dl (12.0-15.5); LYMPH # 2.2 10^3/uL (1.5-5.0); LYMPH % 20.1 % (24.0-44.0); MEAN CORPUSCULAR HEMOGLOBIN 31.1 pg (27.0-33.0); MEAN CORPUSCULAR HGB CONC 33.5 g/dl (32.0-36.5); MONO # 0.7 10^3/uL (0.0-0.8); MONO % 6.2 % (2.0-8.0); NEUTROPHILS # 7.8 10^3/uL (1.5-8.5); NEUTROPHILS % 70.3 % (36.0-66.0); PLATELET COUNT, AUTOMATED 246 10^3/uL (150-450); RED BLOOD COUNT 4.85 10^6/uL (4.00-5.40); WHITE BLOOD COUNT 11.1 10^3/uL (4.0-10.0)
[2023-04-10 13:49] LABS: LIPASE 28 U/L (12-53)
[2023-04-10 13:51] LABS: ALBUMIN 3.3 G/DL (3.2-5.2); ALKALINE PHOSPHATASE 96 U/L (46-116); ALT/SGPT 18 U/L (7.0-40); AST/SGOT 22 U/L (<34); BILIRUBIN,DIRECT 0.1 MG/DL (<0.4); BILIRUBIN,TOTAL 0.5 MG/DL (0.3-1.2); BLOOD UREA NITROGEN 11 MG/DL (9-23); CALCIUM LEVEL 8.2 MG/DL (8.5-10.1); CARBON DIOXIDE LEVEL 30 MMOL/L (20-31); CHLORIDE LEVEL 104 MMOL/L (98-107); CK-MB VALUE MASS < 1.0 NG/ML (<3.6); CREATININE FOR GFR 0.71 MG/DL (0.55-1.30); GLOMERULAR FILTRATION RATE > 60.0 (>51); GLUCOSE, FASTING 133 MG/DL (60-100); POTASSIUM SERUM 4.1 MMOL/L (3.5-5.1); SODIUM LEVEL 134 MMOL/L (136-145)
[2023-04-10 13:53] LABS: FREE T4 1.18 NG/DL (0.89-1.76); THYROID STIMULATING HORMONE 3.421 uIU/ML (0.55-4.78)
[2023-04-10 13:54] LABS: CPK CREATINE PHOSPHOKINASE 73 U/L (34-145); MB/CK RELATIVE INDEX 1.36 (< OR =4)
[2023-04-10] MEDS ORDERED: ISOVUE-370 76% 100ML VIAL As Ordered ONE (14:15)
[2023-04-10 14:18] LABS: RSV AMPLIFICATION NEGATIVE (NEGATIVE)
[2023-04-10 15:15] LABS: CK-MB VALUE MASS < 1.0 NG/ML (<3.6)
[2023-04-10 15:22] LABS: CPK CREATINE PHOSPHOKINASE 67 U/L (34-145); MB/CK RELATIVE INDEX 1.49 (< OR =4)
[2023-04-10 15:45] VITALS: BP 148/80; TEMP 97.5; O2SAT 97
== END 2023-04-10 16:18 | disposition home or self-care (01) ==
LOC: M ED 12:45
DX: R07.9 Chest pain, unspecified (principal); I44.0 Atrioventricular block, first degree; I10 Essential (primary) hypertension; F41.9 Anxiety disorder, unspecified; F17.210 Nicotine dependence, cigarettes, uncomplicated
CPT/HCPCS: 36415; 71045; 71275; 80048; 80076; 82550; 82553; 83690; 83880; 84439; 84443; 85025; 87631; 93005; 93041; 94760; 99285; Q9967

== ENCOUNTER → 2023-05-10 | Outpatient (REF) | payer OTHER | LOC: M LAB REF 18:09 | PROVIDERS: ATTEND Physician Assistant Medical | DX: M79.10 Myalgia, unspecified site (principal) ==

== ENCOUNTER 2023-05-21 19:45 | Emergency (ER) | payer OTHER ==
[~2023-05-21] VITALS: Ht 170.2 cm; Wt 112.0 kg
[2023-05-21] MEDS ORDERED: PRIM50TA6 (19:52)
[2023-05-21 20:51] LABS: RSV AMPLIFICATION NEGATIVE (NEGATIVE)
[2023-05-21] MEDS: IBUPROFEN 600MG TAB PO ONE (21:16)
[2023-05-21 21:29] LABS: BASO # 0.1 10^3/uL (0.0-0.2); BASO % 0.7 % (0.0-1.0); EOS # 0.3 10^3/uL (0.0-0.5); EOS % 3.8 % (0.0-3.0); HEMATOCRIT 46.9 % (36.0-47.0); HEMOGLOBIN 15.9 g/dl (12.0-15.5); LYMPH # 0.9 10^3/uL (1.5-5.0); LYMPH % 12.1 % (24.0-44.0); MEAN CORPUSCULAR HEMOGLOBIN 30.8 pg (27.0-33.0); MEAN CORPUSCULAR HGB CONC 33.9 g/dl (32.0-36.5); MEAN CORPUSCULAR VOLUME 90.9 fl (80.0-96.0); MONO # 0.9 10^3/uL (0.0-0.8); MONO % 12.1 % (2.0-8.0); NEUTROPHILS % 70.7 % (36.0-66.0); PLATELET COUNT, AUTOMATED 208 10^3/uL (150-450); RED BLOOD COUNT 5.16 10^6/uL (4.00-5.40)
[2023-05-21 22:01] LABS: BLOOD UREA NITROGEN 8 MG/DL (9-23); CALCIUM LEVEL 8.7 MG/DL (8.5-10.1); CARBON DIOXIDE LEVEL 27 MMOL/L (20-31); CHLORIDE LEVEL 106 MMOL/L (98-107); CREATININE FOR GFR 0.59 MG/DL (0.55-1.30); GLOMERULAR FILTRATION RATE > 60.0 (>51); GLUCOSE, FASTING 109 MG/DL (60-100); POTASSIUM SERUM 5.1 MMOL/L (3.5-5.1); SODIUM LEVEL 137 MMOL/L (136-145)
[2023-05-21 22:05] LABS: PROCALCITONIN <0.04 ng/ml
[2023-05-21] MEDS ORDERED: BENZ200C70 PO (23:40)
[2023-05-21] MEDS ORDERED: ALBU6.7H6 INH (23:40)
[2023-05-21 23:55] VITALS: BP 148/84; TEMP 97.6; O2SAT 96
== END 2023-05-21 23:55 | disposition home or self-care (01) ==
LOC: M ED 19:45
DX: U07.1 COVID-19 (principal); E11.9 Type 2 diabetes mellitus without complications; I10 Essential (primary) hypertension; K21.9 Gastro-esophageal reflux disease without esophagitis; R25.1 Tremor, unspecified; F17.200 Nicotine dependence, unspecified, uncomplicated; Z88.0 Allergy status to penicillin; Z91.011 Allergy to milk products

== ENCOUNTER 2023-06-28 23:05 | Emergency (ER) | payer OTHER ==
[~2023-06-28] VITALS: Ht 167.6 cm; Wt 116.2 kg
[~2023-06-28 23:05] MED LIST changes: +ALBU6.7H6 INH; +BENZ200C70 PO; +PRIM50TA6
[2023-06-28 23:34] LABS: BASO # 0.1 10^3/uL (0.0-0.2); BASO % 0.7 % (0.0-1.0); EOS # 0.4 10^3/uL (0.0-0.5); EOS % 3.5 % (0.0-3.0); HEMATOCRIT 41.5 % (36.0-47.0); LYMPH % 24.8 % (24.0-44.0); MEAN CORPUSCULAR HEMOGLOBIN 30.7 pg (27.0-33.0); MEAN CORPUSCULAR HGB CONC 33.7 g/dl (32.0-36.5); MONO # 0.7 10^3/uL (0.0-0.8); MONO % 5.7 % (2.0-8.0); NEUTROPHILS # 7.9 10^3/uL (1.5-8.5); NEUTROPHILS % 64.9 % (36.0-66.0); PLATELET COUNT, AUTOMATED 238 10^3/uL (150-450); RED BLOOD COUNT 4.56 10^6/uL (4.00-5.40); WHITE BLOOD COUNT 12.1 10^3/uL (4.0-10.0)
[2023-06-28 23:57] LABS: ALKALINE PHOSPHATASE 101 U/L (46-116); ALT/SGPT 17 U/L (7.0-40); AST/SGOT 15 U/L (<34); BILIRUBIN,DIRECT < 0.1 MG/DL (<0.4); BILIRUBIN,TOTAL 0.3 MG/DL (0.3-1.2); BLOOD UREA NITROGEN 13 MG/DL (9-23); CALCIUM LEVEL 8.3 MG/DL (8.5-10.1); CARBON DIOXIDE LEVEL 25 MMOL/L (20-31); CHLORIDE LEVEL 107 MMOL/L (98-107); CK-MB VALUE MASS 1.7 NG/ML (<3.6); CREATININE FOR GFR 0.59 MG/DL (0.55-1.30); GLOMERULAR FILTRATION RATE > 60.0 (>51); GLUCOSE, FASTING 160 MG/DL (60-100); POTASSIUM SERUM 4.1 MMOL/L (3.5-5.1); SODIUM LEVEL 138 MMOL/L (136-145); TOTAL PROTEIN 6.3 G/DL (5.7-8.2)
[2023-06-29 00:08] LABS: CPK CREATINE PHOSPHOKINASE 92 U/L (34-145); MB/CK RELATIVE INDEX 1.84 (< OR =4)
[2023-06-29 02:59] LABS: CK-MB VALUE MASS 1.7 NG/ML (<3.6)
[2023-06-29 03:23] LABS: MB/CK RELATIVE INDEX 2.09 (< OR =4)
[2023-06-29] MEDS: IPRATROPIUM 0.5MG/ALBUTEROL 2.5MG INH SOL UD 3ML (DUONEB) NEB ONE (07:36)
[2023-06-29] MEDS ORDERED: PRED20TA PO (08:10)
[2023-06-29 08:15] VITALS: BP 140/63; TEMP 96.9; O2SAT 99
[2023-06-29] MEDS: predniSONE 20 MG TAB PO ONE (08:25)
== END 2023-06-29 08:32 | disposition home or self-care (01) ==
LOC: M ED 23:05 → EDBD 23:05 → M ED 06-29 08:32
DX: J44.0 Chronic obstructive pulmonary disease with (acute) lower respiratory infection (principal); R07.9 Chest pain, unspecified; I44.0 Atrioventricular block, first degree; F17.210 Nicotine dependence, cigarettes, uncomplicated; Z88.1 Allergy status to other antibiotic agents; Z91.011 Allergy to milk products; Z79.51 Long term (current) use of inhaled steroids; Z79.899 Other long term (current) drug therapy; Z79.52 Long term (current) use of systemic steroids
CPT/HCPCS: 36415; 71045; 80048; 80076; 82550; 82553; 83880; 85025; 93005; 93041; 94640; 94760; 99285; J7512

== ENCOUNTER 2023-08-11 10:40 | Emergency (ER) | payer OTHER ==
[~2023-08-11] VITALS: Ht 170.2 cm; Wt 112.7 kg
[~2023-08-11 10:40] MED LIST changes: +DOXY-323 PO; -DOXY-443 PO
[2023-08-11] MEDS ORDERED: CLON0.5T2 (10:50)
[2023-08-11] MEDS ORDERED: PROP40TA62 (10:50)
[2023-08-11] MEDS ORDERED: FLUTISP (10:50)
[2023-08-11] MEDS: METOCLOPRAMIDE INJ 10MG/2ML VIAL IV ONE (11:48)
[2023-08-11] MEDS: ACETAMINOPHEN 500 MG TAB PO ONE (11:48)
[2023-08-11 11:51] LABS: BASO # 0.1 10^3/uL (0.0-0.2); BASO % 0.6 % (0.0-1.0); EOS # 0.3 10^3/uL (0.0-0.5); EOS % 2.5 % (0.0-3.0); HEMATOCRIT 45.3 % (36.0-47.0); HEMOGLOBIN 15.1 g/dl (12.0-15.5); LYMPH # 2.4 10^3/uL (1.5-5.0); LYMPH % 23.5 % (24.0-44.0); MEAN CORPUSCULAR HEMOGLOBIN 30.5 pg (27.0-33.0); MEAN CORPUSCULAR HGB CONC 33.3 g/dl (32.0-36.5); MEAN CORPUSCULAR VOLUME 91.5 fl (80.0-96.0); MONO # 0.7 10^3/uL (0.0-0.8); MONO % 6.3 % (2.0-8.0); NEUTROPHILS # 6.9 10^3/uL (1.5-8.5); NEUTROPHILS % 66.6 % (36.0-66.0); PLATELET COUNT, AUTOMATED 216 10^3/uL (150-450); RED BLOOD COUNT 4.95 10^6/uL (4.00-5.40); WHITE BLOOD COUNT 10.3 10^3/uL (4.0-10.0)
[2023-08-11 12:14] LABS: LIPASE 23 U/L (12-53)
[2023-08-11 12:16] LABS: ALBUMIN 3.5 G/DL (3.2-5.2); ALKALINE PHOSPHATASE 106 U/L (46-116); ALT/SGPT 19 U/L (7.0-40); AST/SGOT 11 U/L (<34); BILIRUBIN,DIRECT 0.2 MG/DL (<0.4); BILIRUBIN,TOTAL 0.6 MG/DL (0.3-1.2); BLOOD UREA NITROGEN 8 MG/DL (9-23); CALCIUM LEVEL 9.2 MG/DL (8.5-10.1); CARBON DIOXIDE LEVEL 29 MMOL/L (20-31); CHLORIDE LEVEL 104 MMOL/L (98-107); CREATININE FOR GFR 0.58 MG/DL (0.55-1.30); GLOMERULAR FILTRATION RATE > 60.0 (>51); GLUCOSE, FASTING 106 MG/DL (60-100); SODIUM LEVEL 137 MMOL/L (136-145); TOTAL PROTEIN 6.9 G/DL (5.7-8.2)
[2023-08-11 12:18] LABS: FREE T4 1.17 NG/DL (0.89-1.76); THYROID STIMULATING HORMONE 3.939 uIU/ML (0.55-4.78)
[2023-08-11 12:57] VITALS: BP 134/62
[2023-08-11] MEDS: PROPRANOLOL 20 MG TAB PO ONE (12:57)
[2023-08-11] MEDS ORDERED: REGL10TA6 PO (14:09)
[2023-08-11 14:25] VITALS: BP 128/72; TEMP 97; O2SAT 94
== END 2023-08-11 14:27 | disposition home or self-care (01) ==
LOC: EDBD 10:40 → M ED 10:40
DX: R51.9 Headache, unspecified (principal); R00.1 Bradycardia, unspecified; E11.9 Type 2 diabetes mellitus without complications; I10 Essential (primary) hypertension; K21.9 Gastro-esophageal reflux disease without esophagitis; F41.9 Anxiety disorder, unspecified; F17.210 Nicotine dependence, cigarettes, uncomplicated; Z88.1 Allergy status to other antibiotic agents; Z91.011 Allergy to milk products; Z79.51 Long term (current) use of inhaled steroids; Z79.899 Other long term (current) drug therapy
CPT/HCPCS: 70450; 71045; 80047; 80048; 80076; 83690; 84439; 84443; 85025; 93005; 93041; 94760; 96374; 99285; J2765

== ENCOUNTER 2023-11-30 00:22 | Emergency (ER) | payer OTHER ==
[~2023-11-30] VITALS: Ht 170.2 cm; Wt 113.6 kg
[~2023-11-30 00:22] MED LIST changes: +CLON0.5T2; +FLUTISP; +ONDA-282 PO; -ONDA4TAB6 PO; +PROP40TA62; +REGL10TA6 PO
[2023-11-30 01:30] LABS: BASO # 0.1 10^3/uL (0.0-0.2); BASO % 0.7 % (0.0-1.0); EOS # 0.3 10^3/uL (0.0-0.5); EOS % 2.5 % (0.0-3.0); HEMATOCRIT 44.6 % (36.0-47.0); HEMOGLOBIN 15.1 g/dl (12.0-15.5); LYMPH # 2.9 10^3/uL (1.5-5.0); LYMPH % 27.2 % (24.0-44.0); MEAN CORPUSCULAR HEMOGLOBIN 31.6 pg (27.0-33.0); MEAN CORPUSCULAR HGB CONC 33.9 g/dl (32.0-36.5); MEAN CORPUSCULAR VOLUME 93.3 fl (80.0-96.0); MONO # 0.9 10^3/uL (0.0-0.8); MONO % 8.1 % (2.0-8.0); NEUTROPHILS # 6.5 10^3/uL (1.5-8.5); PLATELET COUNT, AUTOMATED 223 10^3/uL (150-450); RED BLOOD COUNT 4.78 10^6/uL (4.00-5.40); WHITE BLOOD COUNT 10.6 10^3/uL (4.0-10.0)
[2023-11-30 01:57] LABS: MB/CK RELATIVE INDEX 0.92 (< OR =4)
[2023-11-30 03:04] LABS: CK-MB VALUE MASS < 1.0 NG/ML (<3.6)
[2023-11-30 03:06] LABS: BLOOD UREA NITROGEN 11 MG/DL (9-23); CALCIUM LEVEL 8.9 MG/DL (8.5-10.1); CARBON DIOXIDE LEVEL 26 MMOL/L (20-31); CHLORIDE LEVEL 109 MMOL/L (98-107); GLOMERULAR FILTRATION RATE > 60.0 (>51); GLUCOSE, FASTING 115 MG/DL (60-100); POTASSIUM SERUM 3.8 MMOL/L (3.5-5.1); SODIUM LEVEL 140 MMOL/L (136-145)
[2023-11-30 03:07] LABS: CPK CREATINE PHOSPHOKINASE 93 U/L (34-145); MB/CK RELATIVE INDEX 1.07 (< OR =4)
[2023-11-30 04:11] VITALS: TEMP 97
[2023-11-30] MEDS: predniSONE 20 MG TAB PO ONE (06:45)
[2023-11-30 06:54] VITALS: BP 141/67; O2SAT 97
== END 2023-11-30 06:55 | disposition home or self-care (01) ==
LOC: M ED 00:22
DX: R07.9 Chest pain, unspecified (principal); R00.1 Bradycardia, unspecified; I44.0 Atrioventricular block, first degree; I10 Essential (primary) hypertension; J44.9 Chronic obstructive pulmonary disease, unspecified; K21.9 Gastro-esophageal reflux disease without esophagitis; F17.210 Nicotine dependence, cigarettes, uncomplicated; Z88.1 Allergy status to other antibiotic agents; Z91.011 Allergy to milk products; Z79.51 Long term (current) use of inhaled steroids; Z79.52 Long term (current) use of systemic steroids; Z79.899 Other long term (current) drug therapy
CPT/HCPCS: 36415; 71045; 80048; 82550; 82553; 84484; 85025; 93005; 99284; J7512

== ENCOUNTER 2023-12-31 02:56 | Emergency (ER) | payer OTHER ==
[~2023-12-31] VITALS: Ht 170.2 cm; Wt 109.1 kg
[~2023-12-31 02:56] MED LIST changes: -DOXY-323 PO; +DOXY-441 PO
[2023-12-31] MEDS ORDERED: CHLORTHALIDONE 25 MG TAB PO ONE (06:35)
[2023-12-31] MEDS: ACETAMINOPHEN 325 MG TAB PO ONE (06:47)
[2023-12-31] MEDS: CHLORTHALIDONE 25 MG TAB PO ONE (07:46)
[2023-12-31 08:33] VITALS: BP 175/79; O2SAT 97
[2023-12-31 08:41] VITALS: TEMP 97.7
== END 2023-12-31 08:43 | disposition home or self-care (01) ==
LOC: M ED 02:56
DX: R11.10 Vomiting, unspecified (principal); E11.9 Type 2 diabetes mellitus without complications; I10 Essential (primary) hypertension; K21.9 Gastro-esophageal reflux disease without esophagitis; F17.210 Nicotine dependence, cigarettes, uncomplicated; Z88.1 Allergy status to other antibiotic agents; Z91.011 Allergy to milk products; Z79.51 Long term (current) use of inhaled steroids; Z79.52 Long term (current) use of systemic steroids; Z79.899 Other long term (current) drug therapy

== ENCOUNTER 2024-01-29 09:07 | Emergency (ER) | payer OTHER ==
[~2024-01-29] VITALS: Ht 170.2 cm; Wt 107.6 kg
[2024-01-29] MEDS: methocarbamoL 750 MG TAB PO ONE (10:09)
[2024-01-29] MEDS: ACETAMINOPHEN 325 MG TAB PO ONE (10:09)
[2024-01-29] MEDS: NAPROXEN 250 MG TAB PO ONE (10:10)
[2024-01-29] MEDS ORDERED: METH-1165 PO (11:02)
[2024-01-29] MEDS ORDERED: NAPR-885 PO (11:02)
[2024-01-29 11:11] VITALS: BP 137/60; TEMP 99; O2SAT 96
== END 2024-01-29 11:12 | disposition home or self-care (01) ==
LOC: M ED 09:07
DX: M51.360 Other intervertebral disc degeneration, lumbar region with discogenic back pain only (principal); M54.31 Sciatica, right side; F17.210 Nicotine dependence, cigarettes, uncomplicated; Z88.1 Allergy status to other antibiotic agents; Z91.011 Allergy to milk products; Z79.51 Long term (current) use of inhaled steroids; Z79.899 Other long term (current) drug therapy

== ENCOUNTER 2024-05-07 15:21 | Emergency (ER) | payer OTHER ==
[~2024-05-07] VITALS: Ht 170.2 cm; Wt 109.1 kg
[~2024-05-07 15:21] MED LIST changes: +METH-1165 PO; +NAPR-885 PO
[2024-05-07 17:26] LABS: APPEARANCE, URINE HAZY (CLEAR); BACTERIA, URINE AUTO 3+ (NEGATIVE); BILIRUBIN, URINE AUTO NEGATIVE (NEGATIVE); BLOOD, URINE BLOOD NEGATIVE (NEGATIVE); COLOR, URINE YELLOW (YELLOW); GLUCOSE, URINE (UA) AUTO NEGATIVE (NEGATIVE); KETONE, URINE AUTO NEGATIVE (NEGATIVE); LEUKOCYTE ESTERASE, URINE AUTO 2+ (NEGATIVE); MUCUS, URINE SMALL (NEGATIVE); NITRITE, URINE AUTO POSITIVE (NEGATIVE); PROTEIN, URINE AUTO NEGATIVE (NEGATIVE); RBC, URINE AUTO 3 /HPF (0-3); SPECIFIC GRAVITY URINE AUTO 1.019 (1.002-1.035); SQUAMOUS EPITHELIAL CELL UR AU 4 /HPF (0-6); UROBILINOGEN, URINE AUTO 0.2 mg/dL (0.0-2.0); WBC, URINE AUTO 6 /HPF (0-3)
[2024-05-07] MEDS: methocarbamoL 750 MG TAB PO ONE (17:50)
[2024-05-07] MEDS: KETOROLAC 60MG 2ML VIAL IM ONE (17:50)
[2024-05-07 18:33] VITALS: BP 161/82; TEMP 97.1; O2SAT 96
[2024-05-07] MEDS ORDERED: ASPE4PAD TOP (19:11)
[2024-05-07] MEDS ORDERED: METH-1165 PO (19:11)
== END 2024-05-07 19:55 | disposition home or self-care (01) ==
LOC: M ED 15:21
DX: S76.011A Strain of muscle, fascia and tendon of right hip, initial encounter (principal); S39.012A Strain of muscle, fascia and tendon of lower back, initial encounter; Y92.019 Unspecified place in single-family (private) house as the place of occurrence of the external cause; Y93.9 Activity, unspecified; Y99.9 Unspecified external cause status; E11.9 Type 2 diabetes mellitus without complications; I10 Essential (primary) hypertension; J45.909 Unspecified asthma, uncomplicated; K21.9 Gastro-esophageal reflux disease without esophagitis; F17.210 Nicotine dependence, cigarettes, uncomplicated; Z88.1 Allergy status to other antibiotic agents; Z91.011 Allergy to milk products; Z79.51 Long term (current) use of inhaled steroids; Z79.899 Other long term (current) drug therapy
CPT/HCPCS: 72110; 73502; 81001; 96372; 99283; J1885

== ENCOUNTER 2024-05-28 06:38 | Emergency (ER) | payer OTHER ==
[~2024-05-28] VITALS: Ht 170.2 cm; Wt 112.7 kg
[~2024-05-28 06:38] MED LIST changes: +ASPE4PAD TOP
[2024-05-28 07:29] VITALS: TEMP 97.8
[2024-05-28] MEDS: ALBUTEROL SULFATE 2.5MG/0.5ML INH NEB SOLN NEB ONE (07:44)
[2024-05-28] MEDS ORDERED: VENTAER INH (08:14)
[2024-05-28] MEDS ORDERED: MUCI1TAB16 PO (08:14)
[2024-05-28 08:23] VITALS: BP 132/80; O2SAT 99
== END 2024-05-28 08:24 | disposition home or self-care (01) ==
LOC: M ED 06:38
DX: J40 Bronchitis, not specified as acute or chronic (principal); Z88.1 Allergy status to other antibiotic agents; E11.9 Type 2 diabetes mellitus without complications; I10 Essential (primary) hypertension; K21.9 Gastro-esophageal reflux disease without esophagitis; F41.9 Anxiety disorder, unspecified; F17.200 Nicotine dependence, unspecified, uncomplicated; Z79.899 Other long term (current) drug therapy

== ENCOUNTER → 2024-11-21 | Outpatient (CLI) | payer OTHER ==
[~2024-11-21] MED LIST changes: +MUCI1TAB16 PO; +VENTAER INH
[2024-11-21 18:49] LABS: ESTIMATED AVERAGE GLUCOSE 166.0 MG/DL (60-110)
[2024-11-21 19:16] LABS: ALT/SGPT 31 U/L (7.0-40); AST/SGOT 22 U/L (<34); CALCIUM LEVEL 9.1 MG/DL (8.5-10.1); CARBON DIOXIDE LEVEL 28 MMOL/L (20-31); CHLORIDE LEVEL 104 MMOL/L (98-107); CHOLESTEROL LEVEL 191 MG/DL (<200); CHOLESTEROL RISK RATIO 3.50 (<5); CREATININE FOR GFR 0.63 MG/DL (0.55-1.30); GLOMERULAR FILTRATION RATE > 90.0 (>51); LDL CHOLESTEROL 94.7 MG/DL (<100); NON-HDL-C 136.5 MG/DL; POTASSIUM SERUM 4.7 MMOL/L (3.5-5.1); SODIUM LEVEL 142 MMOL/L (136-145); TRIGLYCERIDES LEVEL 209 MG/DL (<150)
[2024-11-21 19:18] LABS: TOTAL 25(OH) VITAMIN D 14.1 NG/ML (20.0-100.0)
== END ==
LOC: M PLALAB 14:59
PROVIDERS: ATTEND Nurse Practitioner Family
DX: Z01.84 Encounter for antibody response examination (principal); I10 Essential (primary) hypertension; E11.9 Type 2 diabetes mellitus without complications; E78.2 Mixed hyperlipidemia; E55.9 Vitamin D deficiency, unspecified

== ENCOUNTER → 2024-11-21 | Outpatient (REF) | payer OTHER | LOC: M SFHCPLAZ 14:53 | PROVIDERS: ATTEND Nurse Practitioner Family | DX: R82.90 Unspecified abnormal findings in urine (principal) ==

== ENCOUNTER → 2025-01-17 | Outpatient (REF) | payer OTHER | LOC: M SFHCPLAZ 17:16 | DX: R09.89 Other specified symptoms and signs involving the circulatory and respiratory systems (principal) ==

== ENCOUNTER 2025-02-24 14:49 | Emergency (ER) | payer OTHER ==
[~2025-02-24] VITALS: Ht 170.2 cm; Wt 116.2 kg
[2025-02-24 16:44] VITALS: TEMP 98.1
[2025-02-24] MEDS: FLUORESCEIN OPHTH 1 MG STRIP OD ONE (18:54)
[2025-02-24] MEDS: PROPARACAINE 0.5% OPHTH SOL 15ML OD ONE (18:54)
[2025-02-24 19:38] VITALS: BP 245/116
[2025-02-24] MEDS: SPIRONOLACTONE 12.5MG PER 1/2 TABLET PO SCH (19:38)
[2025-02-24] MEDS: CHLORTHALIDONE 12.5 MG PER 1/2 TABLET PO ONE (19:38)
[2025-02-24] MEDS: CIPROFLOXACIN 0.3% OPHTH SOLN 2.5 ML OD ONE (19:56)
[2025-02-24 20:30] VITALS: O2SAT 97
[2025-02-24] MEDS ORDERED: CIPR0.3S37 OD (20:33)
[2025-02-24 20:34] VITALS: BP 156/96
== END 2025-02-24 20:45 | disposition home or self-care (01) ==
LOC: M ED 14:49
DX: S05.01XA Injury of conjunctiva and corneal abrasion without foreign body, right eye, initial encounter (principal); Y92.019 Unspecified place in single-family (private) house as the place of occurrence of the external cause; Y93.9 Activity, unspecified; Y99.9 Unspecified external cause status; W22.8XXA Striking against or struck by other objects, initial encounter; Z88.1 Allergy status to other antibiotic agents; Z91.0110 Allergy to milk products, unspecified; Z79.51 Long term (current) use of inhaled steroids; Z79.2 Long term (current) use of antibiotics; Z79.899 Other long term (current) drug therapy